=== PATIENT | male | born 1940 | race Caucasian/White ===

== ENCOUNTER 2016-10-02 14:48 | Inpatient (IN) | payer OTHER ==
[~2016-10-02] VITALS: Ht 175.3 cm; Wt 81.6 kg
--- NOTE | 2016-10-02 15:11 | NUR ---
Informed waiting has been performed. PT AWARE OF WAIT TIME.
--- NOTE | 2016-10-02 15:58 | NUR ---
PT HAD CHEST X-RAY TODAY
--- NOTE | 2016-10-02 15:58 | NUR ---
PT SENT IN BY HORACE VILLALTA FOR INCREASED SOB. PT HAD CHEST X-RAY AND IT SHOWED LG PLURAL EFFUSION AND HE WOULD LIKE PT TO GET A CT SCAN TO R/O MASS VS PNEMONIA.
[2016-10-02 16:09] LABS: ABSOLUTE BASOPHIL COUNT 0 /CUMM (0.0-0.2); ABSOLUTE EOSINOPHIL COUNT 0 /CUMM (0.0-0.7); ABSOLUTE GRANULOCYTE CT 8.3 /CUMM (1.4-6.5); ABSOLUTE LYMPH COUNT 0.8 /CUMM (1.2-3.4); ABSOLUTE MONOCYTE COUNT 0.4 /CUMM (0.10-0.60); BASOPHIL % 0.2 % (0.0-2.0); EOSINOPHIL % 0 % (0-5); HEMATOCRIT 41.4 % (42-52); MEAN CORPUSCULAR HGB 29.3 PG (27.0-31.0); MEAN CORPUSCULAR HGB CONC 33.3 G/DL (33.0-37.0); MEAN PLATELET VOLUME 7.7 FL (7.4-10.4); PLATELET COUNT 407 /CUMM (130-400); RBC DISTRIBUTION WIDTH 13.6 % (11.5-14.5); RED BLOOD CELL CT 4.71 /CUMM (4.70-6.10); WHITE BLOOD CELL COUNT 9.6 /CUMM (4.8-10.8)
[2016-10-02 16:11] LABS: GRANULOCYTE % 87.1 % (42.2-75.2)
--- NOTE | 2016-10-02 16:13 | NUR ---
blood drawn and sent to lab. lav,sst,blue,galeas,pink
--- NOTE | 2016-10-02 17:04 | ED DYSPNEA/ASTHMA COMPLAINT ---
History of Present Illness General Chief Complaint: General Adult Stated Complaint: SIB MD LR FOR EVAL? Source: patient Exam Limitations: no limitations Vital Signs & Intake/Output Vital Signs & Intake/Output Vital Signs Date Time Temp Pulse Resp B/P Pulse O2 O2 Flow FiO2 Ox Delivery Rate 10/03 0700 97.8 62 20 142/94 93 Room Air 10/03 0136 94 Room Air 10/03 0000 94 Room Air 10/02 2343 97.6 73 19 142/80 91 Room Air 10/02 2207 Room Air 10/02 2153 Room Air 10/02 2106 97.4 77 20 174/90 93 10/02 1955 97.6 83 16 145/80 94 Room Air 10/02 1900 94 Room Air 10/02 1558 98.2 87 18 148/92 94 Room Air ED Intake and Output 10/03 0000 10/02 1200 Intake Total 490 Output Total Balance 490 Intake, Oral 490 Patient 180 lb Weight Allergies Coded Allergies: No Known Allergies (10/02/16) Reconcile Medications Albuterol Sulfate (Proair Hfa) 90 MCG HFA.AER.AD 2 PUF INH Q4-6 PRN PRN RESPIRATORY (Reported) Cholecalciferol (Vitamin D3) (Vitamin D) (Unknown Strength) CAPSULE (Unknown Dose) PO DAILY SUPPLEMENT (Reported) Prednisone 20 MG TABLET 1 TAB PO BID RESPIRATORY (Reported) Triage Note: PT SENT IN BY HORACE VILLALTA FOR INCREASED SOB. PT HAD CHEST X-RAY AND IT SHOWED LG PLURAL EFFUSION AND HE WOULD LIKE PT TO GET A CT SCAN TO R/O MASS VS PNEMONIA. Triage Nurses Notes Reviewed? yes Onset: Gradual Duration: getting worse Timing: recent history Severity: severe Activities at Onset: activity HPI: Patient is a 76-year-old male with an unremarkable past medical history of since emergency room stating that for the past month he has been complaining of dyspnea and dyspnea on exertion. Patient states that now with minimal physical activity of walking he gets out of breath. Patient was evaluated by primary care provider last week for similar complaints in which chest x-ray showed pleural effusion, patient was sent in by this primary care provider Jefferson Lr today to receive CT scan of chest for rule out malignancy versus pneumonia versus pleural effusion. Patient states that he's had clear productive coughing and chest tightness for the past month. Denies any fever chills are pain jaw pain nausea vomiting leg swelling hemoptysis (MELISSA RAMIREZ) Past History Travel History Traveled to [place] past 21 day No Medical History Any Pertinent Medical History? none Surgical History Surgical History: non-contributory Psychosocial History What is your primary language Welsh Tobacco Use: Quit >30 days ago ETOH Use: occasional use Illicit Drug Use: denies illicit drug use Family History Hx Contributory? No (MELISSA RAMIREZ) Review of Systems Review of Systems Constitutional: Reports: no symptoms. EENTM: Reports: no symptoms. Respiratory: Reports: see HPI, cough, short of breath. Cardiovascular: Reports: no symptoms. GI: Reports: no symptoms. Genitourinary: Reports: no symptoms. Musculoskeletal: Reports: no symptoms. Skin: Reports: no symptoms. Neurological/Psychological: Reports: no symptoms. Hematologic/Endocrine: Reports: no symptoms. Immunologic/Allergic: Reports: no symptoms. All Other Systems: Reviewed and Negative (MELISSA RAMIREZ) Physical Exam Physical Exam General Appearance: no apparent distress, alert Respiratory: chest non-tender, no respiratory distress, quiet respiration, decreased breath sounds Comments: HEENT: Normal EENT exam, . Neck: Supple, no lymphadenopathy, normal range of motion without pain or tenderness Back: Nontender, no CVA tenderness. Cardiovascular: Regular rate and rhythms no murmurs rubs or gallops, normal JVP Abdomen: Soft, nontender nondistended, no appreciable organomegaly. Normal bowel sounds. No ascites Extremity: No edema, no calf tenderness to palpation, normal and equal pulses. Neuro: Alert oriented x3, motor sensory normal, Skin: No appreciable rash on exposed skin, skin is warm and dry. Psych: Mood and affect is normal, memory and judgment is normal. Core Measures ACS in differential dx? No Severe Sepsis Present: No Septic Shock Present: No (MELISSA RAMIREZ) Progress Differential Diagnosis: asthma, AMI, bronchitis, costochondritis, CHF, COPD, musculoskeletal pain, pericarditis, pulmonary embolism, pneumonia, pneumothorax, rib fracture, unstable angina Plan of Care: Orders Procedure Date/time Status Regular Diet 10/03 B Active Change service to 10/03 820 Active PLEURAL PH (GEN) 10/03 08 Active CULTURE,BODY FLUID 10/03 08 Active CYTOLOGY SPECIMEN 10/03 799 Active BODY FLUID TOTAL PROTEIN 10/03 799 Active BODY FLUID LDH 10/03 799 Active BODY FLUID CELL COUNT 10/03 0800 Active BODY FLUID GLUCOSE 10/03 0800 Active BODY FLUID AMYLASE 10/03 0800 Active BODY FLUID ALBUMIN 10/03 0800 Active TOTAL PROTEIN 10/03 0600 Complete LDH (LACT ACID DEHYDROGENASE) 10/03 0600 Complete CBC WITHOUT DIFFERENTIAL 10/03 0600 Complete BASIC ELECTROLYTES PLUS BUN&CR 10/03 0600 Complete ALBUMIN 10/03 0600 Complete Pain Treatment and Response 10/03 0308 Active US-THORACENTESIS 10/03 UNK Active Lab Add-on Test 10/03 UNK Active THERAPIST ORDERS 10/02 2210 Complete RT: Evaluation 10/02 220 Active TROPONIN LEVEL 10/02 220 Complete EKG 10/02 220 Active Teach/Educate 10/02 2151 Active Nutritional Intake, Monitor 10/02 2151 Active Isolation 10/02 2151 Active Patient Care Conference 10/02 2151 Active Activity/Ambulation 10/02 2151 Active TRC EVALUATION (GEN) 10/02 2037 Complete Saline Lock 10/02 2037 Active Pathway - chart 10/02 2037 Active House Staff 10/02 2037 Active Code Status 10/02 203 Active Intake & Output 10/02 1959 Complete Vital Signs 10/02 1855 Complete Code Status 10/02 1855 Complete Patient Data 10/02 1845 Active Admit to inpatient 10/02 1836 Active Add-on Test (ER Only) 10/02 1713 Active Add-on Test (ER Only) 10/02 1704 Active EKG 10/02 1704 Active TROPONIN LEVEL 10/02 1601 Complete PARTIAL THROMBOPLASTIN TIME 10/02 1601 Complete PROTHROMBIN TIME 10/02 1601 Complete B-TYPE NATRIURETIC PEP (BNP) 10/02 1601 Complete COMPREHENSIVE METABOLIC PANEL 10/02 1559 Complete CBC WITHOUT DIFFERENTIAL 10/02 1559 Complete INCENTIVE SPIROMETRY TRX CHG 10/02 UNK Complete VTE Mechanical Prophylaxis 10/02 UNK Active Vital Signs 10/02 UNK Active Intake & Output 10/02 UNK Active ECHOCARDIOGRAM 10/02 UNK Active Current Medications Sig/Ezequiel Start time Last Medication Dose Stop Time Status Admin Influenza Virus 0.5 ML 1000 10/03 1000 AC Vaccine 10/03 1001 (Fluzone High-Dose) Acetaminophen 650 MG Q6P PRN 10/02 2030 AC (Tylenol) Ibuprofen 600 MG Q6P PRN 10/02 2030 AC (Motrin) Oxycodone HCl 5 MG Q6H PRN 10/02 2030 AC (Roxicodone) Laboratory Tests 10/03/16 0619: Anion Gap 8, Estimated GFR > 60, BUN/Creatinine Ratio 26.7 H, Lactate Dehydrogenase 445, Total Protein 6.7, Albumin 3.9, CBC w Diff NO MAN DIFF REQ, RBC 4.61 L, MCV 88.9, MCH 29.5, RDW 13.4, MPV 7.9, Gran % 63.5, Lymphocytes % 22.3, Monocytes % 11.8 H, Eosinophils % 1.8, Basophils % 0.6, Absolute Granulocytes 5.4, Absolute Lymphocytes 1.9, Absolute Monocytes 1.0 H, Absolute Eosinophils 0.2, Absolute Basophils 0.1, PUBS MCHC 33.2 10/03/16 0600: Lactate Dehydrogenase Cancelled 10/02/16 2200: Troponin I < 0.01 10/02/16 1713: PT Cancelled, INR Cancelled, APTT Cancelled 10/02/16 1601: Anion Gap 12, Estimated GFR > 60, BUN/Creatinine Ratio 25.6 H, Glucose 114 H, Calcium 9.7, Total Bilirubin 0.4, AST 20, ALT 30, Alkaline Phosphatase 76, Troponin I < 0.01, Fnh-Y-Mxmktannunc Pept 44.1, Total Protein 7.6, Albumin 4.5, Globulin 3.1, Albumin/Globulin Ratio 1.5, PT 10.8, INR 1.03, APTT 30, CBC w Diff NO MAN DIFF REQ, RBC 4.71, MCV 88.0, MCH 29.3, RDW 13.6, MPV 7.7, Gran % 87.1 H , Lymphocytes % 8.2 L, Monocytes % 4.5, Eosinophils % 0, Basophils % 0.2, Absolute Granulocytes 8.3 H, Absolute Lymphocytes 0.8 L, Absolute Monocytes 0.4, Absolute Eosinophils 0, Absolute Basophils 0, PUBS MCHC 33.3 Microbiology 10/03 08 BODY FLUID: Body Fluid Culture - ORD 10/03 799 BODY FLUID: Gram Stain - ORD Patient currently is in no respiratory distress. I ambulated down the hallway of emergency room with patient in which he became to However his oxygen saturation was 92%. I discussed patient with his primary care provider Jefferson Lr in which we AGREED upon patient to be admitted to receive therapeutic and diagnostic thoracocentesis PERFORMED BY interventional radiology tomorrow since IR is not available currently. Discussed disposition and plan with patient and family members who agree and had no questions. At this time I did not suspect patient to have infectious process etiology for his right-sided significant pleural effusion. Discussed admission AND PT with Dr. RENTERIA (ARTHUR ZAVALA,MELISSA) Diagnostic Imaging: Viewed by Me: CT Scan. Radiology Impression: SEE COMMENTS Initial ED EKG: SINUS RHYTHM NOTED 68 BPM, LAD Comments: PATIENT: SOCRATES SEGOVIA PRESENT AGE: 76 PATIENT ACCOUNT NO: [id number] : 42 LOCATION: [facility] ORDERING PHYSICIAN: MELISSA ZAVALA SERVICE DATE: 10/02/16 EXAM TYPE: CAT - CT CHEST WO IV CONTRAST EXAMINATION: CT CHEST WITHOUT CONTRAST CLINICAL INFORMATION: Increased shortness of breath. Rule out pneumonia. COMPARISON: None. TECHNIQUE: Multidetector volumetric CT imaging of the chest was done. Axial MIP volume rendering provided. Sagittal and coronal reformatted images were obtained. DLP: 350.81 mGy-cm. FINDINGS: ELECTRICAL CONTROLS TECHNICIAN: Moderate to right pleural effusion is noted at the base and at the apex. LUNGS: Small consolidation in the right upper lobe (series 601 image 59, series 2 images 16 through 21) is noted. Left lower lobe from consolidation representing compressive atelectasis. LOWER NECK AND MEDIASTINUM: The thyroid gland is unremarkable. No mediastinal or hilar adenopathy. No pericardial effusion. The ascending aorta measures 4.1 cm and descending aorta measures 3.2 cm in maximum AP diameter. Mild coronary calcifications. Trachea and mainstem bronchi are well patent. PLEURA: There is moderate to large right pleural effusion. No left pleural effusion. AXILLA: No lymphadenopathy. UPPER ABDOMEN: Unremarkable. OSSEOUS STRUCTURES: Mild degenerative changes in the spine. There is a small sclerotic density in the medial left clavicle representing a bone island. IMPRESSION: Moderate to large right pleural effusion with right lower lobe compressive atelectasis. Small consolidation in the right upper lobe most probably represent compressive atelectasis as well, however pneumonic consolidation or mass cannot be excluded. (MELISSA RAMIREZ) Departure Departure Disposition: STILL A PATIENT Condition: Fair Clinical Impression Primary Impression: Pleural effusion Secondary Impressions: Dyspnea Referrals: EVELYN HENDRICKSON,JEFFERSON Ozuna (PCP) Departure Forms: Customer Survey General Discharge Information Admission Note Spoke With: MINOO NAM,CATHY Documentation of Exam: Documentation of any treatments & extenuating circumstances including Concerns Regarding Discharge (functional status, medication knowledge or non-compliance, living conditions, etc.) that warrant an admission rather than observation: [ Discussed patient with Dr. HENNESSY who agrees with general medicine admission for concerns of significant pleural effusion which patient will require interventional radiology guided thoracocentesis for therapeutic and diagnostic evaluation. Patient requires pulmonary consultation AND repeat imaging. Outpatient treatment at this time due to significant and critical findings of pleural effusion would be medically harmful.] (MELISSA RAMIREZ) PA/MARINE EQUIPMENT RESEARCH ENGINEER Co-Sign Statement Statement: ED Attending supervision documentation- [X] I saw and evaluated the patient. I have also reviewed all the pertinent lab results and diagnostic results. I agree with the findings and the plan of care as documented in the PA's/MARINE EQUIPMENT RESEARCH ENGINEER's documentation. [X] I have reviewed the ED Record and agree with the PA's/MARINE EQUIPMENT RESEARCH ENGINEER's documentation. [] Additions or exceptions (if any) to the PAs/MARINE EQUIPMENT RESEARCH ENGINEER's note and plan are summarized below: [] (MYRA NAM,MISAEL) Critical Care Note Critical Care Note Critical Care Time: 30-74 min (MELISSA RAMIREZ)
--- NOTE | 2016-10-02 17:18 | CT SCAN REPORT ---
EXAMINATION: CT CHEST WITHOUT CONTRAST CLINICAL INFORMATION: Increased shortness of breath. Rule out pneumonia. COMPARISON: None. TECHNIQUE: Multidetector volumetric CT imaging of the chest was done. Axial MIP volume rendering provided. Sagittal and coronal reformatted images were obtained. DLP: 350.81 mGy-cm. 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 LUNGS: Small consolidation in the right upper lobe (series 601 image 59, series 2 images 16 through 21) is noted. Left lower lobe from consolidation representing compressive atelectasis. LOWER NECK AND MEDIASTINUM: The thyroid gland is unremarkable. No mediastinal or hilar adenopathy. No pericardial effusion. The ascending aorta measures 4.1 cm and descending aorta measures 3.2 cm in maximum AP diameter. Mild coronary calcifications. Trachea and mainstem bronchi are well patent. PLEURA: There is moderate to large right pleural effusion. No left pleural effusion. AXILLA: No lymphadenopathy. UPPER ABDOMEN: Unremarkable. OSSEOUS STRUCTURES: Mild degenerative changes in the spine. There is a small sclerotic density in the medial left clavicle representing a bone island. IMPRESSION: Moderate to large right pleural effusion with right lower lobe compressive atelectasis. Small consolidation in the right upper lobe most probably represent compressive atelectasis as well, however pneumonic consolidation or mass cannot be excluded.
[2016-10-02] MEDS ORDERED: PROAIR HFA8.5 GM INH (18:03)
[2016-10-02] MEDS ORDERED: PREDNISONE20 M1 PO (18:03)
[2016-10-02] MEDS ORDERED: VITAMIN D2000 UNIT PO (18:04)
--- NOTE | 2016-10-02 18:27 | NUR ---
SPOKE TO [facility] [employer]. ORDERED CHICKEN WRAP WITH LETTUCE,TOMATO,MILLER, CHICKEN JIMMY SALAD, STRAWBERRY SHORTCAKE AND MILK.
[2016-10-02 18:32] LABS: PT 10.8 SEC (9.4-12.5); PTT 30 SEC (25-37)
--- NOTE | 2016-10-02 19:00 | NUR ---
PT EATING DINNER. IN NAD. WILL CONTINUE TO MONITOR
--- NOTE | 2016-10-02 19:16 | NUR ---
PT ASSIGNED TO ROOM 204-2. NURSE NOTIFIED
--- NOTE | 2016-10-02 20:00 | NUR ---
AVSS. FAMILY AT BEDSIDE FOR SUPPORT
--- NOTE | 2016-10-02 20:03 | History & Physical ---
ISAAC SANCHEZ MD 10/02/162001: General Information and HPI MD Statement: I have seen and personally examined SOCRATES SEGOVIA and documented this H&P. The patient is a 76 year old M who presented with a patient stated chief complaint of [SHORTNESS OF BREATH]. Source of Information: patient, family Exam Limitations: no limitations History of Present Illness: 76-year-old male with no significant prior PMH was sent in by PCP office for further evaluation of pleural effusion. Pt have been having shortness of breath over the past few months, and had it evaluated at his PCP's office 3 weeks ago, and again about 1 week ago. EKG done was normal. He completed 5 day course of prednisone and albuterol for bronchitis today. He had CXR done as OP today which showed pleural effusion and he was told to come to ED for further work-up with CT scan. He complains of cough productive of clear sputum, intermittent chest tightness/ discomfort localized over the sternum and over the left chest. He reports choking sensation, "throat closing up", especially in the cold. That sensation has improved after the prednisone and albuterol. He refused his flu shot this year. He has lost about 20 lbs over the last 3 years (according to pt), over the last year according to the sons present at bedside. He does not have a good appetite because his is "going through medical stuff". He also reports a change in diet. He has night sweats sometimes. 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 Over the last few months, he has had difficulty sleeping, and has been taking benadryl or nyquil to help him sleep. He denies orthopnea or leg swelling. He is a former smoker, smoked about 1 ppd, and could not specify the number of years. He quit smoking 37 years ago. He drinks about 2 glasses of wine a week and denies illicit drug use. Pt had workup for emphysema in the past and had seen [address] Doran with PFTs in the past, and he was told that he does not have emphysema. He had "routine stress test" done with Dr Mena which was normal. He complains of chronic right shoulder pain due to mild rotator cuff tear. He reports an umbilical hernia, for which he gets intermittent throbbing pain on his right testicle, and would feel nauseous, without vomiting, and his umbilicus would be tender during those episodes. The episode is very brief in duration. Allergies/Medications Allergies: Coded Allergies: No Known Allergies (10/02/16) Home Med list Albuterol Sulfate (Proair Hfa) 90 MCG HFA.AER.AD 2 PUF INH Q4-6 PRN PRN RESPIRATORY (Reported) Cholecalciferol (Vitamin D3) (Vitamin D) (Unknown Strength) CAPSULE (Unknown Dose) PO DAILY SUPPLEMENT (Reported) Prednisone 20 MG TABLET 1 TAB PO BID RESPIRATORY (Reported) Past History Travel History Traveled to [facility] past 21 day No Medical History Gastrointestinal: umbilical hernia Musculoskeletal: mild rotator cuff tear Surgical History Surgical History: non-contributory Past Family/Social History Family History Relations & Conditions if any FATHER FH: stroke Psychosocial History Where do you live? Home Who Do You Live With? spouse Services at Home: None Smoking Status: Former Smoker ETOH Use: occasional use Illicit Drug Use: denies illicit drug use Functional Ability ADLs Independent: dressing, eating, toileting, bathing. Ambulation: independent IADLs Independent: shopping, housework, finances, food prep, telephone, transportation , medication admin. 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 Denies: chills, fever. EENTM: Denies: visual changes, nasal congestion, throat pain. Cardiovascular: Reports: chest pain. Denies: orthopena, palpitations, peripheral edema, syncope. Respiratory: Reports: cough, short of breath, sputum production. Denies: hemoptysis, wheezing. GI: Denies: abdominal pain, bloating, constipation, diarrhea, nausea, bloody stool, vomiting. Genitourinary: Denies: dysuria. Musculoskeletal: Reports: joint pain (right shoulder pain). Denies: back pain. Exam & Diagnostic Data Last 24 Hrs of Vital Signs/I&O Vital Signs Date Time Temp Pulse Resp B/P Pulse O2 O2 Flow FiO2 Ox Delivery Rate 10/02 2105 97.4 77 20 174/90 93 10/02 1954 97.6 83 16 145/80 94 Room Air 10/02 1900 94 Room Air 10/02 1558 98.2 87 18 148/92 94 Room Air Intake & Output 10/02 1600 10/02 0800 10/02 0000 Intake Total Output Total Balance Patient 81.647 kg Weight Physical Exam General Appearance Alert, Oriented X3, Cooperative, No Acute Distress, noticably short of breath at the end of his sentence Skin healing wound over the left hand from touching hot copper dow 1 week prior HEENT Atraumatic, PERRLA, EOMI, Mucous Membr. moist/pink Neck Supple, No JVD, No thryomegaly, +2 Carotid Pulse wo Bruit, No LAD Lymphatic Axillary nl, Cervical nl Cardiovascular Regular Rate, Normal S1, Normal S2, No Murmurs, Gallops, Rubs Lungs decreased breath sound over the base and mid right lung , normal breath sound otherwise , right base and mid lung dull to percussion Abdomen Normal Bowel Sounds, Soft, No Tenderness, small umbilical hernia Neurological Normal Speech Last 24 Hrs of Labs/Tio: Laboratory Tests 10/02/16 1713: PT Cancelled, INR Cancelled, APTT Cancelled 10/02/16 1601: Anion Gap 12, Estimated GFR > 60, BUN/Creatinine Ratio 25.6 H, Glucose 114 H, Calcium 9.7, Total Bilirubin 0.4, AST 20, ALT 30, Alkaline Phosphatase 76, Troponin I < 0.01, Gzw-N-Mzpoubwafee Pept 44.1, Total Protein 7.6, Albumin 4.5, Globulin 3.1, Albumin/Globulin Ratio 1.5, PT 10.8, INR 1.03, APTT 30, CBC w Diff NO MAN DIFF REQ, RBC 4.71, MCV 88.0, MCH 29.3, RDW 13.6, MPV 7.7, Gran % 87.1 H , Lymphocytes % 8.2 L, Monocytes % 4.5, Eosinophils % 0, Basophils % 0.2, Absolute Granulocytes 8.3 H, Absolute Lymphocytes 0.8 L, Absolute Monocytes 0.4, Absolute Eosinophils 0, Absolute Basophils 0, PUBS MCHC 33.3 Diagnostic Data Other Results Chest CT: IMPRESSION: Moderate to large right pleural effusion with right lower lobe compressive atelectasis. Small consolidation in the right upper lobe most probably represent compressive atelectasis as well, however pneumonic consolidation or mass cannot be excluded. Assessment/Plan Assessment: 76-year-old male with no significant prior PMH was sent in by PCP office for further evaluation of pleural effusion, with increased dyspnea. Pt admitted to with the following problems addressed: # Right sided pleural effusion * Serial EKG and trop, next one at 10pm * Diagnostic and therapeutic thora, send pleural studies * Pulm consult in am, pt has no preference * Follow echocardiogram * Consider cardio consult with Dr. Mena # Sleep * Rozerem Diet: regular DVT ppx: alps, need thora tomorrow FULL CODE As Ranked By This Provider Problem List: 1. Pleural effusion 2. Dyspnea Core Measures/Miscellaneous Acute Coronary Syndrome ACS Diagnosis: No Cerebrovascular Accident CVA/TIA Diagnosis: No Congestive Heart Failure CHF Diagnosis: No Venous Thromboembolism VTE Risk Factors: Acute medical illness, Age > 40 VTE Prophylaxis Ordered Inpt: Mechanical (ALPS/TEDS) No Mech VTE prophylaxis d/t: No contraindications No VTE Pharm Prophylaxis d/t: Surgical contraindication (thoracentesis tomorrow ) VTE Diagnosis: No VTE Type: NONE VTE Confirmed by (Test): NONE Severe Sepsis Severe Sepsis Present: No Septic Shock Septic Shock Present: No Miscellaneous Documentation Attending Case Discussed With: NGHIA HENNESSY MDElissa Primary Care Physician: JEFFERSON SANTANA Patient sees these Specialists None Level of Patient Care: General Medicine NGHIA HENNESSY MD 10/02/163: Attending MD Review Statement Attending Statement Attending MD Statement: examined this patient, discuss w/resident/PA/GENERAL ASSISTANT, agreed w/resident/PA/GENERAL ASSISTANT, discussed with family Attending Assessment/Plan: 76 yo M is here for evaluation of exertional dyspnea, cough productive of clear phlegm and chest discomfort that has slowly progressed over the past few months, 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 He also reports episodes of ' feeling a sensation of throat closing up' that seems to have gotten better after short course of prednisone and PRN albuterol that his PCP prescribed him. He had a CXR today as advised by his PCP, which was abnormal and so he was asked to come to ER for CT chest. Family reports patient may have lost about 20 lbs in the past 1 year, appetite is poor as patient's is undergoing dialysis and he is taking care of her. His previous work up includes PFT with Dr. Fisher that was suggestive of emphysema, however he got a second opinion and was cleared off the diagnosis. He also had a stress test done with Dr. Mena that was normal. VSS. Exam: mild respiratory distress, 'winded' at the end of completing his sentence, Chest reduced to absent air entry on right mid to lower half of lung. Abdo: small umbilical hernia. Labs: BUN 23, trop neg. CT chest: moderate to large right pleural effusion with RLL atelectasis. RUL compressive atelectasis vs. consolidation. EKG: SR. 1. Right sided pleural effusion of unclear etiology. ?Underlying consolidation vs. mass. Needs diagnostic and therapeutic thoracentesis with IR in AM. Send fluid for cell count, pH, LDH, protein, cytology and culture. Pulm consult in AM. Obtain Echo, rule out ACS. DVT ppx Alps. Full code. JULIETA DIAZ 10/03/16 0155: Resident Review Statement Resident Statement: examined this patient, discussed with post graduate internship, agreed with post graduate internship, discussed with family, reviewed EMR data (avail), reviewed images, amended to note Other Findings: This is 76-year-old male with no significant prior past medical history was sent in by PCP office for further evaluation of pleural effusion that was seen on the chest x-ray that was done today. Patient reports experiencing shortness of breath that is associated with productive cough with clear sputum, also intermittent chest tightness/discomfort localized over the sternum and over the left chest. for the past couple of months, progressing. Patient stated that he complete a course of prednisone and albuterol for bronchitis today that was prescribed by his primary care doctor, despite that there is only minimal improvement in his symptoms.Patient reports weight loss and decreased appetite, he stated he lost around 20 pounds and his son stated that his clothes become too loose on him. He Denies any: chills, fever, orthopena, palpitations, peripheral edema, syncope, hemoptysis, wheezing. Physical examination, lab and imaging as above. Problem list: -Right side pleural effusion, malignancy needs to be rule out -Thrombocytosis Plan: -Admit patient to general medicine floor -Vitals every shift, I and O's -One set of troponin and EKG -Prep the patient for thoracentesis tomorrow morning -Pleural fluid analysis, culture, pH, LDH -Echocardiogram, based on finding consider cardiology consultation -Pulmonary consultation a.m. -Roarnaldoem to the patient sleep -Regular diet -Pain pathway -DVT prophylaxis: Alps -Full code
--- NOTE | 2016-10-02 20:21 | NUR ---
REPORT GIVEN TO BHAVNA CROSS
--- NOTE | 2016-10-02 20:22 | NUR ---
HOUSE STAFF AT BEDSIDE
[2016-10-02 21:06] VITALS: BP 174/90
--- NOTE | 2016-10-02 21:15 | Admission Certification ---
Admission Certification Certification Statement - As attending physician, I certify that at the time of - admission, based on clinical presentation, severity of - symptoms, need for further diagnostic testing and - therapeutic interventions, and risk of adverse outcomes - without in-hospital treatment, in my clinical assessment, - this patient requires an acute hospital stay for a minimum - of two nights or longer. I have also considered psychsocial - factors such as support system, advanced age, financial - issues, cognitive issues, and failed out-patient treatments, - past re-admission history, safety of patient, and lack of - compliance as applicable. Specific rationale supporting this admission is: Right sided pleural effusion of unclear etiology, requires diagnostic and therapeutic thoracentesis and Pulm consult.
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
[2016-10-02 23:43] VITALS: BP 142/80
--- NOTE | 2016-10-03 06:48 | NUR ---
SENT TEXT PAGE TO CHIEF OF SERVICE #[id number] TO CHANGE LAB ORDER TO ADD ON. SST ALREADY DRAWN.
[2016-10-03 07:00] VITALS: BP 142/94
--- NOTE | 2016-10-03 07:06 | PN- Housestaff ---
See Addendum Subjective Follow-up For: Dyspnea Subjective: Patient seen and examined at bedside this AM. He was resting comfortably in bed on room air without any complaints. He reports he did not sleep well but otherwise feels well. Patient is aware he is to have a thoracentesis and risks/ benefits discussed. Review of Systems Constitutional: Denies: chills, diaphoresis, fever. EENTM: Denies: blurred vision, visual changes, hearing changes. Cardiovascular: Denies: chest pain, palpitations. Respiratory: Reports: cough (Occasional), short of breath. Denies: hemoptysis, orthopnea, sputum production, wheezing. Gastrointestinal: Denies: abdominal pain, bloating, constipation, diarrhea. Genitourinary: Denies: dysuria, frequency, hematuria. Musculoskeletal: Denies: back pain. Skin: Denies: change in skin color, change in hair/nails. Neurological/Psychological: Denies: confusion, headache, numbness. Hematologic/Endocrine: Denies: bruising, bleeding. Immunologic/Allergic: Denies: splenectomy. Objective Last 24 Hrs of Vital Signs/I&O Vital Signs Date Time Temp Pulse Resp B/P Pulse O2 O2 Flow FiO2 Ox Delivery Rate 10/03 1240 98.7 70 24 122/68 93 Nasal 2.0L Cannula 10/03 0940 98.6 78 18 126/78 95 Room Air 10/03 0800 95 Room Air 10/03 0700 97.8 62 20 142/94 93 Room Air 10/03 0136 94 Room Air 10/03 0000 94 Room Air 10/02 2343 97.6 73 19 142/80 91 Room Air 10/02 2207 Room Air 10/02 2153 Room Air 10/02 2106 97.4 77 20 174/90 93 10/02 1955 97.6 83 16 145/80 94 Room Air 10/02 1900 94 Room Air 10/02 1558 98.2 87 18 148/92 94 Room Air Intake & Output 10/03 1600 10/03 0800 10/03 0000 Intake Total 1150 250 490 Output Total 52 Balance 1098 250 490 Intake, IV 510 Intake, Oral 640 250 490 Output, Chest 52 Tube Drainage Patient 180 lb Weight Physical Exam General Appearance: Alert, Oriented X3, Cooperative, No Acute Distress Skin: No Significant Lesion HEENT: Atraumatic, PERRLA, Mucous Membr. moist/pink Neck: Supple Lymphatic: Axillary nl, Cervical nl Cardiovascular: Normal S1, Normal S2 Lungs: Normal Air Movement, Diminished breath sounds right lung base, no wheezing appreciated. No tachypnea or use of accesory muscles. Abdomen: Normal Bowel Sounds, Soft, No Tenderness, No Hepatospenomegaly, No Masses Neurological: Normal Speech, Normal Tone Extremities: No Clubbing, No Cyanosis, No Edema Vascular: Pulses Symmetrical Current Medications: Current Medications Sig/Ezequiel Start time Last Medication Dose Route Stop Time Status Admin Acetaminophen 650 MG Q6P PRN 10/02 2029 AC 10/03 PO 1256 Ibuprofen 600 MG Q6P PRN 10/02 2029 AC PO Influenza Virus 0.5 ML 1000 10/03 1000 DC Vaccine IM 10/03 1001 Oxycodone HCl 5 MG Q6H PRN 10/02 2029 AC PO Ramelteon 8 MG AT BEDTIME 10/02 2200 AC 10/02 PO 2221 Sodium Chloride 500 ML BOLUS ONE 10/03 1215 DC 10/03 IV 10/03 1314 1253 Last 24 Hrs of Lab/Tio Results Last 24 Hrs of Labs/Mics: Laboratory Tests 10/03/16 1247: CBC w Diff NO MAN DIFF REQ, RBC 4.58 L, MCV 88.7, MCH 29.5, RDW 13.6, MPV 7.8, Gran % 83.8 H, Lymphocytes % 8.6 L, Monocytes % 6.7, Eosinophils % 0.7, Basophils % 0.2, Absolute Granulocytes 10.7 H, Absolute Lymphocytes 1.1 L, Absolute Monocytes 0.9 H, Absolute Eosinophils 0.1, Absolute Basophils 0, PUBS MCHC 33.3 10/03/16 1022: Fluid WBC 1778 H, Fld Mesothelial Cells , Fld Total RBCs Counted [id number] H 10/03/16 1022: Lymphocytes 48, % Normal PMNs 5, Fluid Glucose 40, Fluid Total Protein 7.5, Fluid Albumin 4.6, Fluid LDH 1934, Fluid Amylase 61 10/03/16 1020: Phlebotomy Draw Site RT THOROCENTESIS, Pleural pH 7.21 10/03/16 0619: Anion Gap 8, Estimated GFR > 60, BUN/Creatinine Ratio 26.7 H, Lactate Dehydrogenase 445, Total Protein 6.7, Albumin 3.9, CBC w Diff NO MAN DIFF REQ, RBC 4.61 L, MCV 88.9, MCH 29.5, RDW 13.4, MPV 7.9, Gran % 63.5, Lymphocytes % 22.3, Monocytes % 11.8 H, Eosinophils % 1.8, Basophils % 0.6, Absolute Granulocytes 5.4, Absolute Lymphocytes 1.9, Absolute Monocytes 1.0 H, Absolute Eosinophils 0.2, Absolute Basophils 0.1, PUBS MCHC 33.2 10/03/16 0600: Lactate Dehydrogenase Cancelled 10/02/16 2200: Troponin I < 0.01 10/02/16 1713: PT Cancelled, INR Cancelled, APTT Cancelled 10/02/16 1601: Anion Gap 12, Estimated GFR > 60, BUN/Creatinine Ratio 25.6 H, Glucose 114 H, Calcium 9.7, Total Bilirubin 0.4, AST 20, ALT 30, Alkaline Phosphatase 76, Troponin I < 0.01, Otc-B-Hnwfaybahqn Pept 44.1, Total Protein 7.6, Albumin 4.5, Globulin 3.1, Albumin/Globulin Ratio 1.5, PT 10.8, INR 1.03, APTT 30, CBC w Diff NO MAN DIFF REQ, RBC 4.71, MCV 88.0, MCH 29.3, RDW 13.6, MPV 7.7, Gran % 87.1 H , Lymphocytes % 8.2 L, Monocytes % 4.5, Eosinophils % 0, Basophils % 0.2, Absolute Granulocytes 8.3 H, Absolute Lymphocytes 0.8 L, Absolute Monocytes 0.4, Absolute Eosinophils 0, Absolute Basophils 0, PUBS MCHC 33.3 Microbiology 10/03 1259 UPPER RESP: Surveillance Culture - COLB 10/03 1259 GI: Surveillance Culture - COLB 10/03 1022 BODY FLUID: AFB Culture with PCR Identification - RECD 10/03 1022 BODY FLUID: AFB Smear Concentration - RECD 10/03 1022 BODY FLUID: Body Fluid Culture - RECD 10/03 1022 BODY FLUID: Gram Stain - RECD Orders Radiology Findings: FINDINGS: A recently placed pleural drainage catheter is located in the inferolateral aspect of the right hemithorax. A moderate sized right pneumothorax is present; the visceral pleural line projects 6 cm below the inferior margin of the right second rib. There is no evidence of a tension pneumothorax. The right pleural effusion has significantly decreased in size after the thoracentesis, and there is decreased compressive atelectasis within the right base. The opacity at the extreme right lung apex probably represents atelectasis of the partially collapsed upper lobe. Cardiac silhouette is normal in size. No acute skeletal findings. 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 IMPRESSION: 1. The right pleural effusion has significantly decreased in size after thoracentesis. 2. Moderate right pneumothorax with pleural drainage catheter in place. 3. Compressive atelectasis in the right lower lobe. The somewhat curvilinear-shaped opacity at the apex of the right lung likely represents atelectasis in the partially collapsed upper lobe. Miscellaneous Findings: EXAMINATION: CT CHEST WITHOUT CONTRAST CLINICAL INFORMATION: Increased shortness of breath. Rule out pneumonia. COMPARISON: None. TECHNIQUE: Multidetector volumetric CT imaging of the chest was done. Axial MIP volume rendering provided. Sagittal and coronal reformatted images were obtained. DLP: 350.81 mGy-cm. FINDINGS: EXTENSION COURSE COORDINATOR: Moderate to right pleural effusion is noted at the base and at the apex. LUNGS: Small consolidation in the right upper lobe (series 601 image 59, series 2 images 16 through 21) is noted. Left lower lobe from consolidation representing compressive atelectasis. LOWER NECK AND MEDIASTINUM: The thyroid gland is unremarkable. No mediastinal or hilar adenopathy. No pericardial effusion. The ascending aorta measures 4.1 cm and descending aorta measures 3.2 cm in maximum AP diameter. Mild coronary calcifications. Trachea and mainstem bronchi are well patent. PLEURA: There is moderate to large right pleural effusion. No left pleural effusion. AXILLA: No lymphadenopathy. UPPER ABDOMEN: Unremarkable. OSSEOUS STRUCTURES: Mild degenerative changes in the spine. There is a small sclerotic density in the medial left clavicle representing a bone island. IMPRESSION: Moderate to large right pleural effusion with right lower lobe compressive atelectasis. Small consolidation in the right upper lobe most probably represent compressive atelectasis as well, however pneumonic consolidation or mass cannot be excluded. Assessment/Plan Assessment: Mr. Flores is a pleasant 76 year old male with no significant PMH on no daily medications other than vitamin D who was sent to [facility] by his PCP after workup for dyspnea found that the patient had a moderate right pleural effusion. Patient reported mild dyspnea, worse with exertion and progressing over the last month. He also endorses occasional cough but was otherwise without symptoms. Patient was admitted to the general medicine floor and the following was the management: 1. Right pleural effusion * Patient hemodynamically stable and saturating well on admission, provided supplemental O2 and TRC nebs as needed * Pulm consult placed with Dr. Doran, recommendations appreciated, will continue to follow recs * Incentive spirometry ordered * ACS ruled out with troponin negative x 2 * Patient scheduled for thoracentesis today 10/03/15 and this was completed around 12 pm * Thoracentesis removed about 2 L and this was sent for cytology, culture, protein, pH, LDH etc and AFB, f/u results of pleural fluid analysis * Patient became hypotensive to 78 systolic and was mildly symptomatic with lethargy after the procedure. Post-procedure CXR showed a PTX. * Patient was transferred to ICU for close hemodynamic monitoring. Chest tube placed to suctioning and repeat CXR ordered for 2 PM. * Patient scheduled for Chest CT with IV constrast tomorrow to further evaluate for any underlying malignancy * NS 500 cc bolus ordered once patient became mildly hypotensive, CBC ordered stat after procedure 2. Influenza vaccination * Patient received flu shot on 10/03 3. Pain * Roxicodone 5 mg Q6h for severe pain * Motrin 600 mg Q6P for moderate pain * Tylenol 650 mg Q6P for mild pain 4. Sleep * Rozerem 8 mg PO at bedtime FULL CODE DVTP: Alps Diet: Regular Mild-severe pain pathways Problem List: 1. Pleural effusion 2. Dyspnea Pain Ratin Pain Location: n/a Pain Goal: Remain pain free Pain Plan: Tylenol for mild, motrin for moderate, roxicodone for severe pain Tomorrow's Labs & Rationales: CBC (post procedure)
[2016-10-03 07:58] LABS: ABSOLUTE BASOPHIL COUNT 0.1 /CUMM (0.0-0.2); ABSOLUTE EOSINOPHIL COUNT 0.2 /CUMM (0.0-0.7); ABSOLUTE GRANULOCYTE CT 5.4 /CUMM (1.4-6.5); ABSOLUTE LYMPH COUNT 1.9 /CUMM (1.2-3.4); BASOPHIL % 0.6 % (0.0-2.0); EOSINOPHIL % 1.8 % (0-5); GRANULOCYTE % 63.5 % (42.2-75.2); MEAN CORPUSCULAR HGB 29.5 PG (27.0-31.0); MEAN CORPUSCULAR HGB CONC 33.2 G/DL (33.0-37.0); MEAN CORPUSCULAR VOLUME 88.9 FL (80.0-94.0); MEAN PLATELET VOLUME 7.9 FL (7.4-10.4); PLATELET COUNT 357 /CUMM (130-400); RBC DISTRIBUTION WIDTH 13.4 % (11.5-14.5); RED BLOOD CELL CT 4.61 /CUMM (4.70-6.10); WHITE BLOOD CELL COUNT 8.5 /CUMM (4.8-10.8)
--- NOTE | 2016-10-03 08:45 | Cons- Pulmonary ---
General Information and HPI Consulting Request Date of Consult: 10/03/16 Requested By: giselle Reason for Consult: Right pleural effusion History of Present Illness: Patient is 76-year-old former smoker admitted with increased shortness of breath associated with a moderate to large right pleural effusion. Patient was a distant smoker. 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 Over the past several weeks he's had a dry nonproductive cough and progressive shortness of breath which precipitated a chest x-ray which delineated a moderate to large right pleural effusion. He has no prior chest x- rays for comparison. He denies fevers chills night sweats hemoptysis. He has had mild weight loss which she attributes to his 's illness. Allergies/Medications Allergies: Coded Allergies: No Known Allergies (10/02/16) Home Med List: Albuterol Sulfate (Proair Hfa) 90 MCG HFA.AER.AD 2 PUF INH Q4-6 PRN PRN RESPIRATORY (Reported) Cholecalciferol (Vitamin D3) (Vitamin D) (Unknown Strength) CAPSULE (Unknown Dose) PO DAILY SUPPLEMENT (Reported) Prednisone 20 MG TABLET 1 TAB PO BID RESPIRATORY (Reported) Review of Systems Review of Systems Constitutional: Reports: unexplained weight loss. Denies: chills, fever, malaise, weakness. Cardiovascular: Denies: chest pain, edema, peripheral edema. Respiratory: Reports: cough, short of breath. Denies: hemoptysis, orthopnea, sputum production, wheezing. GI: Denies: abdominal pain, diarrhea, melena. Genitourinary: Denies: dysuria. Past History Travel History Traveled to [place] past 21 day No Medical History Blood Transfusion Hx: No Gastrointestinal: umbilical hernia Musculoskeletal: mild rotator cuff tear Surgical History Surgical History: non-contributory Family History Relations & Conditions If Any: FATHER FH: stroke Psychosocial History Where Do You Live? Home Who Do You Live With? spouse Services at Home: None Smoking Status: Former Smoker ETOH Use: occasional use Illicit Drug Use: denies illicit drug use Functional Ability ADLs Independent: dressing, eating, toileting, bathing. Ambulation: independent IADLs Independent: shopping, housework, finances, food prep, telephone, transportation , medication admin. 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 Exam & Diagnostic Data Last 24 Hrs of Vital Signs/I&O Vital Signs Date Time Temp Pulse Resp B/P Pulse O2 O2 Flow FiO2 Ox Delivery Rate 10/03 0700 97.8 62 20 142/94 93 Room Air 10/03 0136 94 Room Air 10/03 0000 94 Room Air 10/02 2343 97.6 73 19 142/80 91 Room Air 10/02 2207 Room Air 10/02 2153 Room Air 10/02 2106 97.4 77 20 174/90 93 10/02 1955 97.6 83 16 145/80 94 Room Air 10/02 1900 94 Room Air 10/02 1558 98.2 87 18 148/92 94 Room Air Intake & Output 10/03 1600 10/03 0800 10/03 0000 Intake Total 250 490 Output Total Balance 250 490 Intake, Oral 250 490 Patient 180 lb Weight Patient is afebrile room oximetry is 93% HEENT exam shows no adenopathy exam of his chest shows dullness to percussion posteriorly diminished breath sounds there is evidence of egophony the left chest is clear. Cardiac exam shows regular S1 and S2 without murmurs abdominal exam soft nontender without organomegaly his extremities are non-clubbed there is no edema Last 48 Hrs of Labs/Tio: Laboratory Tests 10/03/16 0619: Anion Gap 8, Estimated GFR > 60, BUN/Creatinine Ratio 26.7 H, Lactate Dehydrogenase 445, Total Protein 6.7, Albumin 3.9, CBC w Diff NO MAN DIFF REQ, RBC 4.61 L, MCV 88.9, MCH 29.5, RDW 13.4, MPV 7.9, Gran % 63.5, Lymphocytes % 22.3, Monocytes % 11.8 H, Eosinophils % 1.8, Basophils % 0.6, Absolute Granulocytes 5.4, Absolute Lymphocytes 1.9, Absolute Monocytes 1.0 H, Absolute Eosinophils 0.2, Absolute Basophils 0.1, PUBS MCHC 33.2 10/03/16 0600: Lactate Dehydrogenase Cancelled 10/02/16 2200: Troponin I < 0.01 10/02/16 1713: PT Cancelled, INR Cancelled, APTT Cancelled 10/02/16 1601: Anion Gap 12, Estimated GFR > 60, BUN/Creatinine Ratio 25.6 H, Glucose 114 H, Calcium 9.7, Total Bilirubin 0.4, AST 20, ALT 30, Alkaline Phosphatase 76, Troponin I < 0.01, Jgi-W-Srsmwajcptl Pept 44.1, Total Protein 7.6, Albumin 4.5, Globulin 3.1, Albumin/Globulin Ratio 1.5, PT 10.8, INR 1.03, APTT 30, CBC w Diff NO MAN DIFF REQ, RBC 4.71, MCV 88.0, MCH 29.3, RDW 13.6, MPV 7.7, Gran % 87.1 H , Lymphocytes % 8.2 L, Monocytes % 4.5, Eosinophils % 0, Basophils % 0.2, Absolute Granulocytes 8.3 H, Absolute Lymphocytes 0.8 L, Absolute Monocytes 0.4, Absolute Eosinophils 0, Absolute Basophils 0, PUBS MCHC 33.3 Assessment/Plan Impression/Plan: 76-year-old cough 4 weeks and progressive shortness of breath related to a sizable right pleural effusion. The etiology of this is unclear for concerns are raised over possible underlying malignancy, mesothelioma,. Less likely appears to be cardiac origin Recommendations: Diagnostic and therapeutic thoracentesis with specimen sent for culture both routine and AFB and cytology as well as routine studies including pH Consult Acknowledgment - Thank you for your consult request.
[2016-10-03 09:40] VITALS: BP 126/78
--- NOTE | 2016-10-03 09:41 | NUR ---
NURSING NOTE: PT LEFT FLOOR VIA STRETCHER WITH DISTRIBUTION FOR US GUIDED THORACENTESIS, VITALS OBTAINED, DOCUMENTED, PT AWAKE, A/OX3, ROOM AIR, DENIES PAIN, CHECKLIST COMPLETE. AWAIT RETUREN TO FLOOR. LABELS SENT TO US. CONT TO MONITOR.
[2016-10-03 12:40] VITALS: BP 122/68
--- NOTE | 2016-10-03 12:45 | NUR ---
NURSING NOTE: 1240PM PT BACK TO FLOOR FROM US S/P R THPRACENTESIS, 2L BLOOD DRAINAGE REMOPVED PER US RN. PT AWAKE, A/OX3, 2L NC, CHEST TUBE TO R BACK INTACT; CONNECT TO SUCTION AT 1300PM PER MD ORDER. ORDER TO TRANSFER TO ICU PLACED BY SOA ENGINEER; NOHELIA AND DYCUSBURG SUPERVISIOR AWARE, AWAITING BED ASSIGNEMTN, PT AND SON UPDATED. PT DENIES CHEST PAIN OR SOB. CONT TO MONITOR.
--- NOTE | 2016-10-03 12:45 | RADIOLOGY REPORT ---
EXAMINATION:\H\ \N\XR CHEST CLINICAL INFORMATION: Right pleural effusion status post pleural drainage catheter placement. COMPARISON: Chest CT from 10/02/2016. TECHNIQUE: Single AP view of the chest was obtained. FINDINGS: A recently placed pleural drainage catheter is located in the inferolateral aspect of the right hemithorax. A moderate sized right pneumothorax is present; the visceral pleural line projects 6 cm below the inferior margin of the right second rib. There is no evidence of a tension pneumothorax. The right pleural effusion has significantly decreased in size after the thoracentesis, and there is decreased compressive atelectasis within the right base. The opacity at the extreme right lung apex probably represents atelectasis of the partially collapsed upper lobe. Cardiac silhouette is normal in size. No acute skeletal findings. 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 IMPRESSION: 1. The right pleural effusion has significantly decreased in size after thoracentesis. 2. Moderate right pneumothorax with pleural drainage catheter in place. 3. Compressive atelectasis in the right lower lobe. The somewhat curvilinear-shaped opacity at the apex of the right lung likely represents atelectasis in the partially collapsed upper lobe.
[2016-10-03 13:11] LABS: ABSOLUTE BASOPHIL COUNT 0 /CUMM (0.0-0.2); ABSOLUTE EOSINOPHIL COUNT 0.1 /CUMM (0.0-0.7); ABSOLUTE GRANULOCYTE CT 10.7 /CUMM (1.4-6.5); ABSOLUTE LYMPH COUNT 1.1 /CUMM (1.2-3.4); ABSOLUTE MONOCYTE COUNT 0.9 /CUMM (0.10-0.60); BASOPHIL % 0.2 % (0.0-2.0); EOSINOPHIL % 0.7 % (0-5); GRANULOCYTE % 83.8 % (42.2-75.2); HEMATOCRIT 40.7 % (42-52); MEAN CORPUSCULAR HGB 29.5 PG (27.0-31.0); MEAN CORPUSCULAR HGB CONC 33.3 G/DL (33.0-37.0); MEAN CORPUSCULAR VOLUME 88.7 FL (80.0-94.0); MEAN PLATELET VOLUME 7.8 FL (7.4-10.4); PLATELET COUNT 358 /CUMM (130-400); RBC DISTRIBUTION WIDTH 13.6 % (11.5-14.5); RED BLOOD CELL CT 4.58 /CUMM (4.70-6.10); WHITE BLOOD CELL COUNT 12.7 /CUMM (4.8-10.8)
--- NOTE | 2016-10-03 13:27 | Event Note ---
Event Note Event Note: Notified by invasive imaging around 12:30 that patient had about 2 L bloody fluid drained during thoracentesis. However, his systolic blood pressure was noted to drop to 78 and the patient became mildly lethargic. His blood pressure remained positional, dropping as he sat up full to 90 degrees. Post- thoracentesis CXR was preliminarily read by radiologist and noted to have a PTX. Suggested that patient should had a chest tube placed to suction at 1 pm and repeat CXR at 2 pm. Stat CBC was ordered as well as a 500 cc bolus of NS. This case was discussed with attending of record, Dr. Colin, who suggested transferring patient to the ICU for closer hemodynamic monitoring. Patient has been signed out to ICU summer intern/resident and nursing home social worker Dr. Doran aware. Patient will haver follow up chest CT with IV contrast scheduled for tomorrow AM as thoracentesis produced bloody fluid and further malignancy workup should be done.
--- NOTE | 2016-10-03 15:01 | ULTRASOUND REPORT ---
EXAMINATION: ULTRASOUND-GUIDED RIGHT THORACENTESIS, DIAGNOSTIC AND THERAPEUTIC, RIGHT CHEST TUBE PLACEMENT CLINICAL INFORMATION: 76-year-old smoker with a history of asbestos exposure presenting with shortness of breath. CT showed the presence of a large right-sided pleural effusion. COMPARISON: Chest CT of 10/02/2015. SUPERVISOR HOT DIP PLATING: Severino Clark M.D. DESCRIPTION: Informed consent was obtained from the patient prior to the procedure. During this process, the procedure and potential alternatives was explained, along with the intended outcome and benefits. The risks of the procedure, as well as the risk of not doing the procedure, were discussed. The patient was given the opportunity to ask questions regarding the procedure and appeared competent to make medical decisions. A signed consent form which documents this discussion was placed in the medical record. The patient's prior imaging studies were reviewed. Appropriate site marking was performed. The patient was brought to the ultrasound suite and a final timeout procedure was performed. A sonographic survey was performed of the posterior right chest for localization of the pleural effusion. The overlying soft tissues of the back were sterilely prepped and draped. Maximum sterile barrier technique was maintained throughout the procedure. Following administration of 1% lidocaine for local anesthesia, a 5-[place] Prt-F-zapwmtfv catheter was introduced into the right pleural cavity using safety needle trocar technique. Approximately 2000 mL of grossly bloody, nonclotting fluid was drained into vacuum bottles. Specimens were sent for cell count with differentiation, culture and sensitivity, cytology, chemistries, and pH. Ultrasound imaging showed the results of a significant residual right pleural effusion. After discussion with the patient's attending physician and pulmonary medicine, it was decided to leave a right chest tube in place. An Amplatz stiff wire was inserted through the Gcw-P-ltszxjuj catheter and following serial fascial dilatations, exchange was made for a 10 [place] nonlocking pigtail catheter. The catheter was secured with 2-0 Ethilon suture and a StatLock. A sterile dressing was placed. Intra procedurally, the patient began feeling dizzy had a drop of blood pressure to 58/32 from a baseline of 137/62 mmHg. This was managed with Trendelenburg positioning and IV infusion of normal saline. The patient recovered promptly. The post procedure chest x-ray showed a small residual right pleural effusion at the right lung base. There is also approximately a 30% apical ex vacuo pneumothorax. There is suggestion of a right suprahilar lung mass extending to the apex of the lung measuring 6.6 x 2.9 cm. IMPRESSION: 1. Successful ultrasound guided diagnostic/therapeutic right thoracentesis yielding 2000 mL of grossly bloody, nonclotting fluid. Specimens sent for multi analysis. 2. Significant residual pleural fluid noted by ultrasound. After after consulting with the patient's treating physicians, a 10 [place] right chest tube was placed. 3. Post procedure chest x-ray showed a 30% right apical pneumothorax with suggestion of a right suprahilar mass. Dr. Fisher was notified. The right chest tube will be placed under [facility] suction. A CT with IV contrast will be obtained tomorrow for further evaluation of the possible right lung mass.
[2016-10-03 16:00] VITALS: BP 126/84
--- NOTE | 2016-10-03 16:03 | RADIOLOGY REPORT ---
EXAMINATION: XR PORTABLE CHEST CLINICAL INFORMATION: Status post large volume right thoracentesis with evacuation of 2000 mL of bloody fluid. COMPARISON: AP upright chest x-ray obtained at 10:52 today. TECHNIQUE: Portable view of the chest was obtained. FINDINGS: Again noted is a right chest tube infralaterally. Atelectatic changes are noted in the right lower lobe. The right pleural effusion appears decreased in volume. There is a persistent, stable approximately 30% right apical pneumothorax. Again noted is a suspected right suprahilar mass. The left lung is clear. IMPRESSION: 1. Right chest tube remains in satisfactory position. 2. Decreased right pleural effusion. 3. Stable 30% right apical pneumothorax. 4. Possible right suprahilar mass. Contrast CT of the chest pending.
--- NOTE | 2016-10-03 16:26 | NUR ---
@1600-PT ALERT AND ORIENTED, CALM AND COOP. VSS. TEMP 99.6. PAIN IMPROVED FROM 10 TO 6 TO R CHEST TUBE SITE AFTER RECIEVING ROXICODONE AT 1430. ASSISTED TO COMF POSITION WITH PILLOWS AND WARM SOCK PLACED TO CHEST TUBE SITE PT CONT ON 2LNC. O2SAT 96%. DENIES SOB. R CHEST TUBE SITE-PIGTAIL CATH, LWS-BLOODY DRAINAGE. NSR HR 60S. PT MADE GENMED AT THIS TIME AFTER ASSESSMENT FROM DR MCCURDY. URINAL AT BEDSIDE. PLAN FOR REPEAT CBC AT 6PM. CT CHEST ORD FOR AM. CONT TO MONITOR CLOSELY. CALL SEWELL WITHIN REACH.
[2016-10-03 19:14] LABS: ABSOLUTE BASOPHIL COUNT 0 /CUMM (0.0-0.2); ABSOLUTE EOSINOPHIL COUNT 0 /CUMM (0.0-0.7); ABSOLUTE GRANULOCYTE CT 9.5 /CUMM (1.4-6.5); ABSOLUTE LYMPH COUNT 1.1 /CUMM (1.2-3.4); ABSOLUTE MONOCYTE COUNT 0.7 /CUMM (0.10-0.60); BASOPHIL % 0.3 % (0.0-2.0); EOSINOPHIL % 0.4 % (0-5); GRANULOCYTE % 83.5 % (42.2-75.2); MEAN CORPUSCULAR HGB 29.5 PG (27.0-31.0); MEAN CORPUSCULAR HGB CONC 33.3 G/DL (33.0-37.0); MEAN CORPUSCULAR VOLUME 88.4 FL (80.0-94.0); MEAN PLATELET VOLUME 8.1 FL (7.4-10.4); PLATELET COUNT 350 /CUMM (130-400); RBC DISTRIBUTION WIDTH 13.7 % (11.5-14.5); WHITE BLOOD CELL COUNT 11.4 /CUMM (4.8-10.8)
[2016-10-03 20:30] VITALS: BP 116/60
[2016-10-04 01:00] VITALS: BP 122/64
--- NOTE | 2016-10-04 07:28 | PN- Pulmonary ---
Subjective HPI/Critical Care Issues: Patient continues to drain bloody fluid but quantity has decreased. He appears to have a persistent small air leak. Shortness of breath is improved. Pleural fluid is a lymphocytic exudate. Review of postdrainage CT suggest possibility of a right suprahilar mass. Objective Current Medications: Current Medications Sig/Ezequiel Start time Last Medication Dose Route Stop Time Status Admin Acetaminophen 650 MG .STK-MED ONE 10/03 1253 DC PO 10/03 1254 Acetaminophen 650 MG Q6P PRN 10/02 2030 AC 10/04 PO 0134 Ibuprofen 600 MG .STK-MED ONE 10/03 1817 DC PO 10/03 1818 Ibuprofen 600 MG Q6P PRN 10/02 2030 AC 10/03 PO 1821 Influenza Virus 0.5 ML 1000 10/03 1000 DC 10/03 Vaccine IM 10/03 1001 1604 Ondansetron HCl 4 MG ONCE ONE 10/03 1914 DC 10/03 IV 10/03 1916 1936 Oxycodone HCl 5 MG Q4 HRS NEEDED PRN 10/03 1914 AC 10/04 PO 0628 Oxycodone HCl 5 MG Q6H PRN 10/02 2029 DC 10/03 PO 1434 Ramelteon 8 MG AT BEDTIME 10/02 2200 AC 10/04 PO 0133 Sodium Chloride 500 ML BOLUS ONE 10/03 1215 DC 10/03 IV 10/03 1314 1253 Vital Signs & I&O Last 24 Hrs of Vitals and I&O: Vital Signs Date Time Temp Pulse Resp B/P Pulse O2 O2 Flow FiO2 Ox Delivery Rate 10/04 0100 98.3 56 18 122/64 95 Nasal 2.0L Cannula 10/04 0011 95 Nasal 2.0L Cannula 10/03 2030 99.0 60 20 116/60 92 Nasal 2.0L Cannula 10/03 1600 95 Nasal 2.0L Cannula 10/03 1600 99.6 62 18 126/84 95 Nasal 2.0L Cannula 10/03 1240 98.7 70 24 122/68 93 Nasal 2.0L Cannula 10/03 0940 98.6 78 18 126/78 95 Room Air 10/03 0800 95 Room Air Intake & Output 10/04 0800 10/04 0000 10/03 1600 Intake Total 319 135 3218 Output Total 110 488 52 Balance 10 -288 1098 Intake, IV 510 Intake, Oral 120 200 640 Output, Chest 110 488 52 Tube Drainage Since saturation 2 L 95% exam for chest shows improved breath sounds over the right hemithorax Impression/Plan Impression/Plan Impression/Plan: cardiac exam shows normal S1 and S2 without [id number] cough 4 weeks and progressive shortness of breath related to a sizable right pleural effusion. Effusion is a little lymphocytic exudative bloody highly worrisome for primary malignancy with pleural metastasis, Recommendations: Repeat chest x-ray this morning. Follow-up cultures and cytology. Repeat CT chest with IV contrast
--- NOTE | 2016-10-04 07:34 | PN- Housestaff ---
Subjective Follow-up For: -Dyspnea 2/2 pleural effusion -Pneumothorax Subjective: Patient was seen and examined at bedside. He is resting comfortable in bed without any current complaints. Patient reported that his right side chest pain improved markedly since yesterdy. Review of Systems Constitutional: Denies: chills, diaphoresis, fever. Cardiovascular: Denies: chest pain, palpitations, syncope. Respiratory: Reports: cough (Occasional ), short of breath. Denies: hemoptysis, orthopnea, sputum production. Gastrointestinal: Denies: abdominal pain, constipation, nausea, vomiting. Genitourinary: Denies: dysuria. Objective Last 24 Hrs of Vital Signs/I&O Vital Signs Date Time Temp Pulse Resp B/P Pulse O2 O2 Flow FiO2 Ox Delivery Rate 10/04 0800 97 Nasal 2.0L Cannula 10/04 0800 97.9 64 20 110/60 94 Nasal 2.0L Cannula 10/04 0100 98.3 56 18 122/64 95 Nasal 2.0L Cannula 10/04 0011 95 Nasal 2.0L Cannula 10/03 2030 99.0 60 20 116/60 92 Nasal 2.0L Cannula 10/03 1600 95 Nasal 2.0L Cannula 10/03 1600 99.6 62 18 126/84 95 Nasal 2.0L Cannula 10/03 1240 98.7 70 24 122/68 93 Nasal 2.0L Cannula Intake & Output 10/04 1600 10/04 0800 10/04 0000 Intake Total 120 200 Output Total 110 488 Balance 10 -288 Intake, Oral 120 200 Output, Chest 110 488 Tube Drainage Physical Exam General Appearance: Alert, Oriented X3, Cooperative, No Acute Distress Skin: No Rashes HEENT: Atraumatic, PERRLA, EOMI, Mucous Membr. moist/pink Cardiovascular: Regular Rate, Normal S1, Normal S2, No Murmurs Lungs: decrease airentry on the right lung , right lung tube is in place and drained 650 ml of bloddy fluid Abdomen: Soft, No Tenderness Neurological: Normal Speech Extremities: No Clubbing, No Cyanosis, No Edema Current Medications: Current Medications Sig/Ezequiel Start time Last Medication Dose Route Stop Time Status Admin Acetaminophen 650 MG .STK-MED ONE 10/04 0125 DC PO 10/04 0126 Acetaminophen 650 MG .STK-MED ONE 10/03 1253 DC PO 10/03 1254 Acetaminophen 650 MG Q6P PRN 10/02 2029 10/04 PO 0134 Ibuprofen 600 MG .STK-MED ONE 10/03 181 DC PO 10/03 181 Ibuprofen 600 MG Q6P PRN 10/02 2029 10/03 PO 1821 Ondansetron HCl 4 MG ONCE ONE 10/03 1914 DC 10/03 IV 10/03 191 1936 Oxycodone HCl 5 MG Q4 HRS NEEDED PRN 10/03 1914 10/04 PO 0628 Oxycodone HCl 5 MG Q6H PRN 10/02 2029 WA 10/03 PO 1434 Ramelteon 8 MG AT BEDTIME 10/02 2199 10/04 PO 0133 Sodium Chloride 500 ML BOLUS ONE 10/03 1215 DC 10/03 IV 10/03 1314 1253 Last 24 Hrs of Lab/Tio Results Last 24 Hrs of Labs/Mics: Laboratory Tests 10/04/16 0620: Anion Gap 9, Estimated GFR > 60, Glucose 106 H, Calcium 9.0, Phosphorus 4.4, Magnesium 2.0, Total Bilirubin 0.5, AST 15 L, ALT 25, Albumin 3.4 L, CBC w Diff NO MAN DIFF REQ, RBC 4.29 L, MCV 88.6, MCH 29.6, RDW 13.3, MPV 8.1, Gran % 79.9 H, Lymphocytes % 11.4 L, Monocytes % 7.5, Eosinophils % 1.0, Basophils % 0.2, Absolute Granulocytes 9.1 H, Absolute Lymphocytes 1.3, Absolute Monocytes 0.9 H, Absolute Eosinophils 0.1, Absolute Basophils 0, PUBS MCHC 33.4 10/03/16 1807: CBC w Diff NO MAN DIFF REQ, RBC 4.30 L, MCV 88.4, MCH 29.5, RDW 13.7, MPV 8.1, Gran % 83.5 H, Lymphocytes % 10.0 L, Monocytes % 5.8, Eosinophils % 0.4, Basophils % 0.3, Absolute Granulocytes 9.5 H, Absolute Lymphocytes 1.1 L, Absolute Monocytes 0.7 H, Absolute Eosinophils 0, Absolute Basophils 0, PUBS MCHC 33.3 10/03/16 1247: CBC w Diff NO MAN DIFF REQ, RBC 4.58 L, MCV 88.7, MCH 29.5, RDW 13.6, MPV 7.8, Gran % 83.8 H, Lymphocytes % 8.6 L, Monocytes % 6.7, Eosinophils % 0.7, Basophils % 0.2, Absolute Granulocytes 10.7 H, Absolute Lymphocytes 1.1 L, Absolute Monocytes 0.9 H, Absolute Eosinophils 0.1, Absolute Basophils 0, PUBS MCHC 33.3 Microbiology 10/03 1320 UPPER RESP: Surveillance Culture - RECD 10/03 1319 GI: Surveillance Culture - RECD Assessment/Plan Assessment: Mr. Flores is a pleasant 76 year old male with no significant PMH on no daily medications other than vitamin D who was sent to [place] by his PCP after workup for dyspnea found that the patient had a moderate right pleural effusion. Patient reported mild dyspnea, worse with exertion and progressing over the last month. He also endorses occasional cough but was otherwise without symptoms. Patient was admitted to the general medicine floor and the following was the management: 1# Right pleural effusion * Patient hemodynamically stable and saturating well, provided supplemental O2 and TRC nebs as needed * Pulm consult placed with Dr. Doran, recommendations appreciated, will continue to follow recs * ACS ruled out with troponin negative x 2 * Thoracentesis removed about 2 L and this was sent for cytology, culture, protein, pH, LDH etc and AFB, the result is back and suggestive of exudative. malignancy will need to be ruled out. * Patient scheduled for Chest CT with IV constrast today to further evaluate for any underlying malignancy 2# Influenza vaccination * Patient received flu shot on 10/03 3# Pain * Roxicodone 5 mg Q6h for severe pain * Motrin 600 mg Q6P for moderate pain * Tylenol 650 mg Q6P for mild pain 4#Sleep * Rozerem 8 mg PO at bedtime FULL CODE DVTP: Alps Diet: Regular Mild-severe pain pathways Problem List: 1. Pleural effusion 2. Dyspnea Pain Ratin Pain Location: Right chest Pain Goal: Remain pain free Pain Plan: Percocet every 4 Tomorrow's Labs & Rationales: CBC and BEP
[2016-10-04 08:00] VITALS: BP 110/60
--- NOTE | 2016-10-04 08:10 | RADIOLOGY REPORT ---
EXAMINATION: XR PORTABLE CHEST CLINICAL INFORMATION: Pleural effusion. Lung mass. Pneumothorax follow-up. COMPARISON: CXR from 10/03/2016. Chest CT from 10/02/2016. TECHNIQUE: Portable view of the chest was obtained. FINDINGS: The aeration of the right lower lobe has improved, although there is some residual hazy and linear, streaky opacity in the base, likely atelectasis. The subpleural opacity/atelectasis at the right lung apex has slightly decreased, as well. The right pneumothorax has decreased in size. The visceral pleural line now projects 3.1 cm below the inferior margin of the right second rib. Small amount of residual air is present within the right lateral costophrenic sulcus. The pleural drainage catheter projects over the region of the costophrenic sulcus. The pleural effusion has decreased compared to 10/03/2016, and is significantly decreased compared to 10/02/2016. IMPRESSION: Right pleural drainage catheter projects over the region of the costophrenic sulcus and the pleural effusion has significantly decreased. Also, the pneumothorax has decreased compared to 10/03/2016.
[2016-10-04 08:23] LABS: ABSOLUTE BASOPHIL COUNT 0 /CUMM (0.0-0.2); ABSOLUTE EOSINOPHIL COUNT 0.1 /CUMM (0.0-0.7); ABSOLUTE GRANULOCYTE CT 9.1 /CUMM (1.4-6.5); ABSOLUTE LYMPH COUNT 1.3 /CUMM (1.2-3.4); ABSOLUTE MONOCYTE COUNT 0.9 /CUMM (0.10-0.60); BASOPHIL % 0.2 % (0.0-2.0); GRANULOCYTE % 79.9 % (42.2-75.2); MEAN CORPUSCULAR HGB 29.6 PG (27.0-31.0); MEAN CORPUSCULAR HGB CONC 33.4 G/DL (33.0-37.0); MEAN CORPUSCULAR VOLUME 88.6 FL (80.0-94.0); MEAN PLATELET VOLUME 8.1 FL (7.4-10.4); PLATELET COUNT 316 /CUMM (130-400); RBC DISTRIBUTION WIDTH 13.3 % (11.5-14.5); RED BLOOD CELL CT 4.29 /CUMM (4.70-6.10); WHITE BLOOD CELL COUNT 11.4 /CUMM (4.8-10.8)
--- NOTE | 2016-10-04 10:52 | NUR ---
@0800-PT ALERT AND ORIENTED, CALM AND COOP. VSS. ROXICODONE ADMINISTERED [id number] DOSE AT 0630. PT STATES HE IS COMFORTABLE AT THIS TIME. RICE SOCK PLACED TO CT PIGTAIL SITE. CONT ON 2LNC. SAT 96%. FAINT CRACKLES TO R SIDE. REPEAT CXR BEING DONE AT BEDSIDE. ORD OF CT OF CHEST THIS AM. CONT GM HOLD. BP STABLE. REG DIET PROVIDED. VOIDS IN URINAL. SKIN INTACT. LABS STABLE. CONT TO MONITOR CLOSELY. CALL SEWELL WITHIN REACH.
--- NOTE | 2016-10-04 12:36 | PN- Att Addend ---
Attending Addendum Attending Brief Note Patient seen and examined. Resting comfortably in the intensive care unit as a general medicine hold. There were no events overnight. His pain is controlled on his current analgesic regimen. He denies shortness of breath. Patient has been afebrile and remains hemodynamically stable. 2 L of fluid was removed and thoracocentesis yesterday. Since then he has drained 650 mL of fluid. Vital Signs Date Time Temp Pulse Resp B/P Pulse O2 O2 Flow FiO2 Ox Delivery Rate 10/04 0800 97 Nasal 2.0L Cannula 10/04 0800 97.9 64 20 110/60 94 Nasal 2.0L Cannula 10/04 0100 98.3 56 18 122/64 95 Nasal 2.0L Cannula 10/04 0011 95 Nasal 2.0L Cannula 10/03 2030 99.0 60 20 116/60 92 Nasal 2.0L Cannula 10/03 1600 95 Nasal 2.0L Cannula 10/03 1600 99.6 62 18 126/84 95 Nasal 2.0L Cannula 10/03 1240 98.7 70 24 122/68 93 Nasal 2.0L Cannula Gen. appearance: Well-developed, not in acute distress Heart: S1 and S2 regular with no audible murmur Lungs: Improved air entry right lung base. Abd: Soft, nontender with normal bowel sounds. Ext: No pedal edema. Skin: Intact with no rashes Laboratory Tests 10/04/16 0620: Anion Gap 9, Estimated GFR > 60, Glucose 106 H, Calcium 9.0, Phosphorus 4.4, Magnesium 2.0, Total Bilirubin 0.5, AST 15 L, ALT 25, Albumin 3.4 L, CBC w Diff NO MAN DIFF REQ, RBC 4.29 L, MCV 88.6, MCH 29.6, RDW 13.3, MPV 8.1, Gran % 79.9 H, Lymphocytes % 11.4 L, Monocytes % 7.5, Eosinophils % 1.0, Basophils % 0.2, Absolute Granulocytes 9.1 H, Absolute Lymphocytes 1.3, Absolute Monocytes 0.9 H, Absolute Eosinophils 0.1, Absolute Basophils 0, PUBS MCHC 33.4 10/03/16 1807: CBC w Diff NO MAN DIFF REQ, RBC 4.30 L, MCV 88.4, MCH 29.5, RDW 13.7, MPV 8.1, Gran % 83.5 H, Lymphocytes % 10.0 L, Monocytes % 5.8, Eosinophils % 0.4, Basophils % 0.3, Absolute Granulocytes 9.5 H, Absolute Lymphocytes 1.1 L, Absolute Monocytes 0.7 H, Absolute Eosinophils 0, Absolute Basophils 0, PUBS MCHC 33.3 10/03/16 1247: CBC w Diff NO MAN DIFF REQ, RBC 4.58 L, MCV 88.7, MCH 29.5, RDW 13.6, MPV 7.8, Gran % 83.8 H, Lymphocytes % 8.6 L, Monocytes % 6.7, Eosinophils % 0.7, Basophils % 0.2, Absolute Granulocytes 10.7 H, Absolute Lymphocytes 1.1 L, Absolute Monocytes 0.9 H, Absolute Eosinophils 0.1, Absolute Basophils 0, PUBS MCHC 33.3 Microbiology 10/03 1320 UPPER RESP: Surveillance Culture - RECD 10/03 132 GI: Surveillance Culture - RECD Problems: 1. Hemorrhagic right pleural effusion -Gram stain and culture are negative. -Fluid is exudative with high lymphocyte count. -H&H has been stable post procedure. -Follow-up cytology. -Repeat x-ray today shows decreases set of effusion and pneumothorax. -Repeat chest CT with IV contrast as recommended by the pulmonary service to further evaluate the hazy and linear streaky opacity in the base which is currently being attributed to atelectasis on the chest x-ray. -Follow-up with the pulmonary service regarding further management of the chest tube.
[2016-10-04 16:00] VITALS: BP 120/80
--- NOTE | 2016-10-04 16:33 | NUR ---
@1600-PT RETURNED FROM CT FOR CT OF CHEST WITH CONTRAST. PT ASSISTED TO COMF POSITION IN BED WITH WARMED RICE SOCK TO CHEST TUBE SITE-PLACED BACK TO LWS. SS DRAINAGE. CONT ON RA, O2SAT 94%. DENIES SOB. CONT TO MONITOR.
--- NOTE | 2016-10-04 18:48 | CT SCAN REPORT ---
EXAMINATION: CT CHEST WITH CONTRAST CLINICAL INFORMATION: Pleural effusion, shortness of breath. Mass/malignancy. COMPARISON: CT scan of the chest 10/02/2016, and chest x-ray also obtained 10/04/2016. TECHNIQUE: Multidetector volumetric CT imaging of the chest was obtained after the administration of 74 mL of Optiray 320 intravenous contrast without immediate adverse reactions. Axial MIP volume rendering provided. Sagittal and coronal reformatted images were obtained. DLP: 294.02 mGy-cm FINDINGS: NURSING COORDINATOR: A pigtail chest drain is noted at the right base laterally. LUNGS: There is a spiculated mass in the right upper lobe medially abutting to the superior mediastinum which measures 2.0 x 1.3 cm in oblique axial dimensions. There is atelectasis at the right base. There are patchy opacities with air bronchograms at the right base, which may be consistent with consolidation. There are linear areas of opacification in the right middle lobe consistent with atelectasis. MEDIASTINUM: The thyroid gland appears normal. The mediastinum is central. There are atheromatous calcifications of the aorta and great vessels of the neck. There is no mediastinal or hilar lymphadenopathy. There are small mediastinal lymph nodes. The heart is normal in size. There is no pericardial effusion. PLEURA: The large pleural effusion is no longer visualized. There are trace bilateral pleural effusions with adjacent underlying atelectasis. There is a small pneumothorax. A pigtail catheter from the right posterior chest is noted at the right base. AXILLA: There is no axillary lymphadenopathy. There is subcutaneous air in the right chest wall extending laterally and posteriorly, and most prominent at the right lung base. UPPER ABDOMEN: There is an accessory splenule. The adrenal glands are normal in size. OSSEOUS STRUCTURES: There are multilevel degenerative changes in the thoracic spine. There is a sclerotic density in the medial left clavicle, consistent with a bone island. There are degenerative changes at the left shoulder joint. IMPRESSION: 1. There has been interval drainage of the right pleural effusion when compared to prior imaging. A pigtail catheter is noted at the right base posterolaterally. There are trace bilateral pleural effusions. 2. There is a 2.0 x 1.3 cm spiculated mass in the right upper lobe, concerning for neoplasm. This could be further assessed with PET CT scan. 3. There is subcutaneous air around the right chest, and there is a small pneumothorax.
[2016-10-04 23:35] VITALS: BP 128/78
--- NOTE | 2016-10-05 07:14 | History & Physical ---
General Information and HPI Source of Information: patient, family Exam Limitations: no limitations Allergies/Medications Allergies: Coded Allergies: No Known Allergies (10/02/16) Home Med list Albuterol Sulfate (Proair Hfa) 90 MCG HFA.AER.AD 2 PUF INH Q4-6 PRN PRN RESPIRATORY (Reported) Cholecalciferol (Vitamin D3) (Vitamin D) (Unknown Strength) CAPSULE (Unknown Dose) PO DAILY SUPPLEMENT (Reported) Prednisone 20 MG TABLET 1 TAB PO BID RESPIRATORY (Reported) Past History Travel History Traveled to [place] past 21 day No Medical History Blood Transfusion Hx: No Gastrointestinal: umbilical hernia Musculoskeletal: mild rotator cuff tear History of MRSA: No History of VRE: No History of CDIFF: No Isolation History: Standard Influenza Vaccine: 10/03/16 Surgical History Surgical History: non-contributory Past Family/Social History Family History Relations & Conditions if any FATHER FH: stroke Psychosocial History Where do you live? Home Who Do You Live With? spouse Services at Home: None Smoking Status: Former Smoker ETOH Use: occasional use Illicit Drug Use: denies illicit drug use Functional Ability ADLs Independent: dressing, eating, toileting, bathing. Ambulation: independent IADLs Independent: shopping, housework, finances, food prep, telephone, transportation , medication admin. 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 Small consolidation in the right upper lobe most probably represent compressive atelectasis as well, however pneumonic consolidation or mass cannot be excluded. Core Measures/Miscellaneous Cerebrovascular Accident CVA/TIA Diagnosis: No Severe Sepsis Severe Sepsis Present: No Septic Shock Septic Shock Present: No Miscellaneous Documentation Patient sees these Specialists None Level of Patient Care: General Medicine
--- NOTE | 2016-10-05 07:15 | PN- Housestaff ---
See Addendum Subjective Follow-up For: -Dyspnea 2/2 pleural effusion -Pneumothorax -mass on chest CT Subjective: She was seen and examined. He is awake alert X3 and looks comfortable. Patient did not have bowel movement for the last 3 days, however he denies abdominal pain, nausea, or vomiting and he is been passing gas. Patient is fitted reported mild pain on the right pleural drainage catheter site. Review of Systems Constitutional: Denies: chills, diaphoresis, fever, weakness. Cardiovascular: Reports: chest pain (mild with cough ). Respiratory: Reports: cough, sputum production (white ). Denies: hemoptysis, orthopnea, short of breath, wheezing. Gastrointestinal: Reports: constipation. Denies: abdominal pain, diarrhea, distention, nausea, vomiting. Genitourinary: Denies: dysuria. Objective Last 24 Hrs of Vital Signs/I&O Vital Signs Date Time Temp Pulse Resp B/P Pulse O2 O2 Flow FiO2 Ox Delivery Rate 10/05 0800 94 Room Air 10/05 0800 98.8 82 20 140/78 94 Room Air 10/05 0000 93 Room Air 10/04 2335 97.5 75 18 128/78 93 Room Air 10/04 1600 98.0 80 20 120/80 94 Room Air Intake & Output 10/05 1600 10/05 0800 10/05 0000 Intake Total 600 400 Output Total 100 240 Balance 500 160 Intake, IV 0 0 Intake, Oral 600 400 Number 0 0 Bowel Movements Output, Chest 240 Tube Drainage Output, 100 Drainage Physical Exam General Appearance: Alert, Oriented X3, Cooperative, No Acute Distress Skin: No Rashes HEENT: Atraumatic, PERRLA, EOMI Cardiovascular: Regular Rate, Normal S1, Normal S2, No Murmurs Lungs: decrease air-entry over lungs B/L right > left poor air movment over the right lung upper Abdomen: Soft, No Tenderness, increase bowel sound Neurological: Normal Speech Extremities: No Clubbing, No Cyanosis, No Edema Current Medications: Current Medications Sig/Ezequiel Start time Last Medication Dose Route Stop Time Status Admin Acetaminophen 650 MG Q6P PRN 10/02 2029 AC 10/04 PO 0134 Benzonatate 100 MG TID 10/04 2014 AC 10/05 PO 0822 Heparin Sodium 5,000 UNIT Q8 10/04 1230 AC 10/05 (Porcine) SC 0602 Ibuprofen 600 MG Q6P PRN 10/02 2030 AC 10/03 PO 1821 Oxycodone HCl 5 MG Q4 HRS NEEDED PRN 10/03 1915 AC 10/05 PO 0823 Polyethylene Glycol 17 GM DAILY 10/05 0515 AC 10/05 PO 0602 Ramelteon 8 MG AT BEDTIME 10/02 2200 AC 10/04 PO 2138 Senna/Docusate Sodium 1 TAB BID 10/05 05 AC 10/05 PO 0602 Last 24 Hrs of Lab/Tio Results Last 24 Hrs of Labs/Mics: Laboratory Tests 10/05/16517: Anion Gap 8, Estimated GFR > 60, Glucose 102 H, Calcium 8.8, Phosphorus 3.2, Magnesium 2.0, Total Bilirubin 0.5, AST 18, ALT 34, Albumin 3.4 L, CBC w Diff NO MAN DIFF REQ, RBC 4.32 L, MCV 89.0, MCH 29.6, RDW 13.4, MPV 8.1, Gran % 75.7 H, Lymphocytes % 14.0 L, Monocytes % 8.6, Eosinophils % 1.2, Basophils % 0.5, Absolute Granulocytes 8.5 H, Absolute Lymphocytes 1.6, Absolute Monocytes 1.0 H, Absolute Eosinophils 0.1, Absolute Basophils 0.1, PUBS MCHC 33.2 Assessment/Plan Assessment: Mr. Flores is a pleasant 76 year old male with no significant PMH on no daily medications other than vitamin D who was sent to [facility] by his PCP after workup for dyspnea found that the patient had a moderate right pleural effusion. Patient reported mild dyspnea, worse with exertion and progressing over the last month. He also endorses occasional cough but was otherwise without symptoms. 1# Right pleural effusion * Patient hemodynamically stable and saturating well, provided supplemental O2 and TRC nebs as needed * ACS ruled out with troponin negative x 2 * Thoracentesis removed about 2 L and this was sent for cytology, culture, protein, pH, LDH etc and AFB, the result is back and suggestive of exudative. malignancy will need to be ruled out. * CT result shows a 2.0 x 1.3 cm spiculated mass in the right upper lobe, concerning for neoplasm. This could be further assessed with PET CT scan. * Thoracic surgery consult placed, we will follow recs * We are waiting for cytology study, once it's identified we will ask for oncology evaluation. 2# Influenza vaccination * Patient received flu shot on 10/03 3# Pain * Roxicodone 5 mg Q6h for severe pain * Motrin 600 mg Q6P for moderate pain * Tylenol 650 mg Q6P for mild pain 4#Sleep * Rozerem 8 mg PO at bedtime FULL CODE DVTP: Alps Diet: Regular Mild-severe pain pathways Problem List: 1. Pleural effusion 2. Dyspnea Pain Ratin Pain Location: right pleural drainage catheter site with cough Pain Goal: Remain pain free Pain Plan: oxycodone 5 mg q4 prn ibuprofen 600 mg q6 prn acetaminophen 650 mg q6 prn Tomorrow's Labs & Rationales: cbc and bep
[2016-10-05 07:27] LABS: ABSOLUTE BASOPHIL COUNT 0.1 /CUMM (0.0-0.2); ABSOLUTE EOSINOPHIL COUNT 0.1 /CUMM (0.0-0.7); ABSOLUTE GRANULOCYTE CT 8.5 /CUMM (1.4-6.5); ABSOLUTE LYMPH COUNT 1.6 /CUMM (1.2-3.4); BASOPHIL % 0.5 % (0.0-2.0); EOSINOPHIL % 1.2 % (0-5); GRANULOCYTE % 75.7 % (42.2-75.2); HEMATOCRIT 38.4 % (42-52); MEAN CORPUSCULAR HGB 29.6 PG (27.0-31.0); MEAN CORPUSCULAR HGB CONC 33.2 G/DL (33.0-37.0); MEAN PLATELET VOLUME 8.1 FL (7.4-10.4); PLATELET COUNT 309 /CUMM (130-400); RBC DISTRIBUTION WIDTH 13.4 % (11.5-14.5); RED BLOOD CELL CT 4.32 /CUMM (4.70-6.10); WHITE BLOOD CELL COUNT 11.2 /CUMM (4.8-10.8)
--- NOTE | 2016-10-05 07:46 | PN- Pulmonary ---
Subjective HPI/Critical Care Issues: As breath improved changes to have chest pain with coughing. Chest CT suggests a right lung mass with probable malignant pleural effusion/ Objective Current Medications: Current Medications Sig/Ezequiel Start time Last Medication Dose Route Stop Time Status Admin Acetaminophen 650 MG Q6P PRN 10/02 2029 AC 10/04 PO 0134 Benzonatate 100 MG TID 10/04 2014 AC 10/04 PO 2138 Heparin Sodium 5,000 UNIT Q8 10/04 1230 AC 10/05 (Porcine) SC 0602 Ibuprofen 600 MG Q6P PRN 10/02 2029 AC 10/03 PO 1821 Oxycodone HCl 5 MG Q4 HRS NEEDED PRN 10/03 1915 AC 10/04 PO 2001 Polyethylene Glycol 17 GM DAILY 10/05 05 AC 10/05 PO 0602 Ramelteon 8 MG AT BEDTIME 10/02 220 AC 10/04 PO 2138 Senna/Docusate Sodium 1 TAB BID 10/05 05 AC 10/05 PO 0602 Vital Signs & I&O Last 24 Hrs of Vitals and I&O: Vital Signs Date Time Temp Pulse Resp B/P Pulse O2 O2 Flow FiO2 Ox Delivery Rate 10/05 0000 93 Room Air 10/04 2335 97.5 75 18 128/78 93 Room Air 10/04 1600 98.0 80 20 120/80 94 Room Air 10/04 0800 97 Nasal 2.0L Cannula 10/04 0800 97.9 64 20 110/60 94 Nasal 2.0L Cannula Intake & Output 10/05 0800 10/05 0000 10/04 1600 Intake Total 600 400 450 Output Total 100 240 710 Balance 500 160 -260 Intake, IV 0 0 0 Intake, Oral 600 400 450 Number 0 0 0 Bowel Movements Output, Chest 240 60 Tube Drainage Output, 100 Drainage Output, Urine 650 Room air oxygen saturation 93% exam of his chest shows good air entry Impression/Plan Impression/Plan Impression/Plan: 76-year-old gentleman with primary lung cancer and probable malignant effusion. Recommendations: Repeat chest x-ray this morning. Follow-up cultures and cytology. The pleural fluid drainage persists may need CT surgery evaluation for Pleurx catheter and one cytology identified oncology evaluation
[2016-10-05 08:00] VITALS: BP 140/78
--- NOTE | 2016-10-05 08:37 | RADIOLOGY REPORT ---
EXAMINATION: XR PORTABLE CHEST CLINICAL INFORMATION: Pneumothorax with tube in place. Shortness of breath. COMPARISON: Multiple prior examinations most recent x-ray and chest CT 10/04/2016. TECHNIQUE: Portable view of the chest was obtained. FINDINGS: A right pleural drainage catheter projects over the region of the right costophrenic angle unchanged. A small amount of air is noted in the adjacent chest wall\E\soft tissues. There is persistent small pneumothorax on the right with the visceral pleural line noted the 3.5 cm caudal to the apex of the right hemithorax and at the level of the posterior right fourth. There is persistent bibasilar opacities compatible with bibasilar atelectasis. I do not appreciate definite pleural effusion. The cardiac silhouette mediastinum and pulmonary vascularity are normal. IMPRESSION: Stable appearance of the chest with the right drainage catheter in place and stable pneumothorax. Stable bibasilar opacities most likely atelectasis.
--- NOTE | 2016-10-05 14:45 | NUR ---
TO MRI VIA STRETCHER; PIGTAIL CHEST TUBE TO WATER SEAL; PATIENT ALERT ORIENTED X3; NO COMPLAINTS.
--- NOTE | 2016-10-05 15:45 | NUR ---
REPORT GIVEN TO SUSSY RN 2NA. PATIENT TO RETURN FROM MRI TO ROOM 234.
--- NOTE | 2016-10-05 16:21 | PN- Thoracic Surgery ---
Surgical Brief Attending Note Brief Attending Note: Spoke with Dr. Lam. Cytology was positive for carcinoma. Drain can be continued until the drainage is minimal. The drain will then be removed and depending upon his reaccumulation he may need a Pleurx catheter in the future. There is no current thoracic surgical issue. Diagnosis is made from the pleural effusion.
--- NOTE | 2016-10-05 17:55 | Cons- Oncology ---
General Information and HPI Consulting Request Date of Consult: 10/05/16 Requested By: CHENTE MCCURDY M.D Reason for Consult: Positive cytology Source of Information: patient, old records Exam Limitations: no limitations History of Present Illness: Mr. Flores is a 76-year-old male presented to the hospital for further evaluation of pleural effusion. He has been progressively short of breath of the last few weeks. He was treated with prednisone and albuterol for bronchitis. This did not improve. He had CXR done by his PCP on 10/02/2016 and demonstrated pleural effusion. He was directed to come to the ED for evaluation. CT of the chest on 10/02 demonstrated moderate to large right pleural effusion with right lower lobe compressive atelectasis. Small consolidation in the right upper lobe. He underwent a thoracentesis on 10/03/2015 and had 2L removed. He did become hypotensive after the procedure and had a post-procedure pneumothorax on CXR. He was monitored in the ICU with chest tube placemenet. Repeat CT scan on 10/04 demonstrated trace bilateral pleural effusions, a 2.0 x 1.3 cm spiculated mass in the right upper lobe, concerning for neoplasm. There is subcutaneous air around the right chest, and there is a small pneumothorax. Cytology from the thoracentesis came back as atypical cells consistent with non- small cell carcinoma, favor adenocarcinoma. He currently feels well. He still has a chest tube in place. He denies any fever or chills. Of note, he was a previous smoker 30 years ago. He denies any significant alcohol usage. He denies any drug usage. Allergies/Medications Allergies: Coded Allergies: No Known Allergies (10/02/16) Home Med List: Albuterol Sulfate (Proair Hfa) 90 MCG HFA.AER.AD 2 PUF INH Q4-6 PRN PRN RESPIRATORY (Reported) Cholecalciferol (Vitamin D3) (Vitamin D) (Unknown Strength) CAPSULE (Unknown Dose) PO DAILY SUPPLEMENT (Reported) Prednisone 20 MG TABLET 1 TAB PO BID RESPIRATORY (Reported) Current Medications: Current Medications Sig/Ezequiel Start time Last Medication Dose Route Stop Time Status Admin Acetaminophen 650 MG Q6P PRN 10/02 2029 AC 10/04 PO 0134 Benzonatate 100 MG TID 10/04 2014 AC 10/05 PO 1623 Heparin Sodium 5,000 UNIT Q8 10/04 1230 AC 10/05 (Porcine) SC 1625 Ibuprofen 600 MG Q6P PRN 10/02 2030 AC 10/05 PO 1032 Oxycodone HCl 5 MG Q4 HRS NEEDED PRN 10/03 1915 AC 10/05 PO 1623 Polyethylene Glycol 17 GM DAILY 10/05 0515 10/05 PO 0602 Ramelteon 8 MG AT BEDTIME 10/02 2200 AC 10/04 PO 2138 Senna/Docusate Sodium 1 TAB BID 10/05 0515 10/05 PO 0602 Review of Systems Review of Systems Constitutional: Denies: chills, fever, weakness. EENTM: Denies: blurred vision, double vision, epistaxis, nasal pain, throat pain. Cardiovascular: Reports: chest pain. Denies: palpitations, syncope. Respiratory: Reports: cough, short of breath. GI: Denies: abdominal pain, bloating, constipation, diarrhea. Genitourinary: Denies: dysuria. Musculoskeletal: Reports: back pain. Skin: Denies: erythema, lesions. Neurological/Psychological: Reports: anxiety. Denies: confusion. Hematologic/Endocrine: Denies: bruising, bleeding. Immunologic/Allergic: Denies: no symptoms. All Other Systems: Reviewed and Negative Past History Travel History Traveled to [place] past 21 day No Medical History Blood Transfusion Hx: No Gastrointestinal: umbilical hernia Musculoskeletal: mild rotator cuff tear Surgical History Surgical History: non-contributory Family History Relations & Conditions If Any: FATHER FH: stroke Psychosocial History Where Do You Live? Home Who Do You Live With? spouse Services at Home: None Smoking Status: Former Smoker ETOH Use: occasional use Illicit Drug Use: denies illicit drug use Functional Ability ADLs Independent: dressing, eating, toileting, bathing. Ambulation: independent IADLs Independent: shopping, housework, finances, food prep, telephone, transportation , medication admin. 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 Exam & Diagnostic Data Vital Signs and I&O Vital Signs Date Time Temp Pulse Resp B/P Pulse O2 O2 Flow FiO2 Ox Delivery Rate 10/05 0800 94 Room Air 10/05 0800 98.8 82 20 140/78 94 Room Air 10/05 0000 93 Room Air 10/04 2335 97.5 75 18 128/78 93 Room Air Intake & Output 10/05 1600 10/05 0800 10/05 0000 Intake Total 800 600 400 Output Total 170 100 240 Balance 630 500 160 Intake, IV 0 0 Intake, Oral 800 600 400 Number 0 0 Bowel Movements Output, Chest 170 240 Tube Drainage Output, 100 Drainage Physical Exam General Appearance: well developed/nourished, no apparent distress, alert, comfortable Head: atraumatic, normal appearance Eyes: Bilateral: PERRL. Ears, Nose, Throat: normal pharynx Respiratory: Right posterior chest pain at the chest tube inserting point; Crackles at the bases bilateral Cardiovascular: regular rate/rhythm Gastrointestinal: normal bowel sounds, soft, non-tender, no organomegaly Extremities: normal inspection, normal capillary refill, normal range of motion Skin: intact, normal color, warm/dry Lymphatic: no anterior cervical usama Last 48 Hours of Lab Results: Laboratory Tests 10/05 10/04 0518 0620 Chemistry Sodium (137 - 145 mmol/L) 137 139 Potassium (3.5 - 5.1 mmol/L) 4.4 4.5 Chloride (98 - 107 mmol/L) 100 103 Carbon Dioxide (22 - 30 mmol/L) 28 27 Anion Gap (5 - 16) 8 9 BUN (9 - 20 mg/dL) 20 19 Creatinine (0.7 - 1.2 mg/dL) 0.9 0.8 Estimated GFR (>60 ml/min) > 60 > 60 Glucose (65 - 99 mg/dL) 102 H 106 H Calcium (8.4 - 10.2 mg/dL) 8.8 9.0 Phosphorus (2.5 - 4.5 mg/dL) 3.2 4.4 Magnesium (1.6 - 2.3 mg/dL) 2.0 2.0 Total Bilirubin (0.2 - 1.3 mg/dL) 0.5 0.5 AST (17 - 59 U/L) 18 15 L ALT (21 - 72 U/L) 34 25 Albumin (3.5 - 5.0 g/dL) 3.4 L 3.4 L Hematology CBC w Diff NO MAN DIFF REQ NO MAN DIFF REQ WBC (4.8 - 10.8 /CUMM) 11.2 H 11.4 H RBC (4.70 - 6.10 /CUMM) 4.32 L 4.29 L Hgb (14.0 - 18.0 G/DL) 12.8 L 12.7 L Hct (42 - 52 %) 38.4 L 38.0 L MCV (80.0 - 94.0 FL) 89.0 88.6 MCH (27.0 - 31.0 PG) 29.6 29.6 RDW (11.5 - 14.5 %) 13.4 13.3 Plt Count (130 - 400 /CUMM) 309 316 MPV (7.4 - 10.4 FL) 8.1 8.1 Gran % (42.2 - 75.2 %) 75.7 H 79.9 H Lymphocytes % (20.5 - 51.1 %) 14.0 L 11.4 L Monocytes % (1.7 - 9.3 %) 8.6 7.5 Eosinophils % (0 - 5 %) 1.2 1.0 Basophils % (0.0 - 2.0 %) 0.5 0.2 Absolute Granulocytes (1.4 - 6.5 /CUMM) 8.5 H 9.1 H Absolute Lymphocytes (1.2 - 3.4 /CUMM) 1.6 1.3 Absolute Monocytes (0.10 - 0.60 /CUMM) 1.0 H 0.9 H Absolute Eosinophils (0.0 - 0.7 /CUMM) 0.1 0.1 Absolute Basophils (0.0 - 0.2 /CUMM) 0.1 0 PUBS MCHC (33.0 - 37.0 G/DL) 33.2 33.4 10/03 1807 Hematology CBC w Diff NO MAN DIFF REQ WBC (4.8 - 10.8 /CUMM) 11.4 H RBC (4.70 - 6.10 /CUMM) 4.30 L Hgb (14.0 - 18.0 G/DL) 12.7 L Hct (42 - 52 %) 38.0 L MCV (80.0 - 94.0 FL) 88.4 MCH (27.0 - 31.0 PG) 29.5 RDW (11.5 - 14.5 %) 13.7 Plt Count (130 - 400 /CUMM) 350 MPV (7.4 - 10.4 FL) 8.1 Gran % (42.2 - 75.2 %) 83.5 H Lymphocytes % (20.5 - 51.1 %) 10.0 L Monocytes % (1.7 - 9.3 %) 5.8 Eosinophils % (0 - 5 %) 0.4 Basophils % (0.0 - 2.0 %) 0.3 Absolute Granulocytes (1.4 - 6.5 /CUMM) 9.5 H Absolute Lymphocytes (1.2 - 3.4 /CUMM) 1.1 L Absolute Monocytes (0.10 - 0.60 /CUMM) 0.7 H Absolute Eosinophils (0.0 - 0.7 /CUMM) 0 Absolute Basophils (0.0 - 0.2 /CUMM) 0 PUBS MCHC (33.0 - 37.0 G/DL) 33.3 Imaging/Other Studies: CT chest 10/04/2015 1. There has been interval drainage of the right pleural effusion when compared to prior imaging. A pigtail catheter is noted at the right base posterolaterally. There are trace bilateral pleural effusions. 2. There is a 2.0 x 1.3 cm spiculated mass in the right upper lobe, concerning for neoplasm. This could be further assessed with PET CT scan. 3. There is subcutaneous air around the right chest, and there is a small pneumothorax. Assessment/Plan Assessment: Mr. Flores is a 76-year-old male without significant history of medical issue who presented to the ED after noted to have pleural effusion by his PCP. Thoracentesis has helped his symptoms. Unfortunately, his pleural effusion returned as non-small cell carcinoma favoring adenocarcinoma. CT imaging demonstrated a right upper lobe medially abutting to the superior mediastinum measuring 2.0 x 1.3 cm in oblique axial dimensions. This suggest his primary is likely lung origin. He should have complete staging scan, PET/CT whole body. He should have MRI of the brain. Pleural fluid was not able to identify a primary at the moment. Pathology should be contacted to determine if they have enough sample to make a diagnosis and molecultar testing. If note, the fluid from the chest tube may be able to be use. Otherwise, he may need a biopsy of the primary mass or other more assessable area. I went over the general diagnosis and need for therapy given his M1a disease with positive pleural fluid. Thoracic surgery is seeing him for possible need for local therapy for fluid. Molecular markers will be useful to treatment plans. Recommendations: 1. MRI brain 2. PET/CT body 3. Contact pathology to determine sample size and potential need for more biopsy 4. Check CEA Problem List: 1. Pleural effusion 2. Dyspnea 3. Carcinoma Other Findings/Comments: Please call [phone] with any questions. Consult Acknowledgment - Thank you for your consult request.
[2016-10-05 19:02] VITALS: BP 130/80
--- NOTE | 2016-10-05 19:23 | MRI REPORT ---
EXAMINATION: MR BRAIN WITHOUT AND WITH CONTRAST CLINICAL INFORMATION: New cancer cells in pleural effusion. Assess for metastases. COMPARISON: CT scan of the head 04/23/2011. TECHNIQUE: MRI of the brain was obtained using routine sequences before and after the intravenous administration of 7 mL of OptiMARK. FINDINGS: No diffusion abnormalities are identified to suggest an acute or subacute infarct. No mass effect or midline shift is seen. The ventricles and sulci are commensurately prominent consistent with mild diffuse volume loss. There are moderate scattered areas of increased T2 and FLAIR signal in the periventricular and subcortical white matter and in the norma, consistent with sequelae of chronic microvascular ischemic disease. 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 The brainstem and cerebellum are normal. On postcontrast imaging, there is no abnormal parenchymal or leptomeningeal enhancement. No pathologic magnetic susceptibility artifact is identified on the gradient refocused acquisition. The craniovertebral junction, marrow signal, and midline structures are normal. The major intracranial flow-voids at the level of the [place] are preserved. The dural venous sinus flow-voids are maintained. The mastoid air cells are well-aerated. There is mucoperiosteal thickening in the bilateral anterior ethmoid and in the sphenoid sinuses. There is trace fluid in the left maxillary sinus. There has been a left lens extraction. IMPRESSION: 1. There are no acute bleeds or infarcts. 2. There are no masses or areas of abnormal enhancement. 3. There are changes consistent with mild diffuse volume loss and there are sequelae of chronic microvascular ischemic disease.
[2016-10-05 22:36] VITALS: BP 118/60
--- NOTE | 2016-10-05 23:33 | NUR ---
PATIENT TRANSFERRED FROM ICU AT 1600. PATIENT ALERT AND ORIENTED X 3. PIG TAIL ATTACHED TO CHEST TUBE TO LWS FROM RIGHT BACK. ONCOLOGY () AND CART DRIVER JOSE R IN TO SEE PATIENT PER FAMILY REQUEST. PAIN MEDICATION GIVEN ORDERED. PATIENT COMFORTABLE AT THIS TIME. CALL LIGHT WITHIN REACH.
[2016-10-06 06:38] VITALS: BP 150/90
--- NOTE | 2016-10-06 06:57 | PN- Housestaff ---
VI NAM,SONIA 10/06/16 0657: Subjective Follow-up For: Carcinoma Right pleural effusion Subjective: Patient seen and examined at bedside this AM. He reports he did not sleep well as his recent diagnosis is unfavorable. Patient has had discussions with oncology, pulmonology and thoracic surgery. Review of Systems Constitutional: Denies: chills, fever, malaise. EENTM: Denies: blurred vision, visual changes, hearing changes. Cardiovascular: Denies: chest pain, palpitations. Respiratory: Denies: cough, short of breath, wheezing. Gastrointestinal: Denies: abdominal pain, constipation, diarrhea, distention, nausea. Genitourinary: Denies: dysuria. Musculoskeletal: Reports: muscle pain (At site of chest tube). Skin: Denies: change in skin color, change in hair/nails. Neurological/Psychological: Denies: confusion, headache, numbness, tingling. Hematologic/Endocrine: Denies: bruising, bleeding. Immunologic/Allergic: Denies: splenectomy. Objective Last 24 Hrs of Vital Signs/I&O Vital Signs Date Time Temp Pulse Resp B/P Pulse O2 O2 Flow FiO2 Ox Delivery Rate 10/06 0800 93 Room Air 10/06 0638 98.1 80 20 150/90 92 Room Air 10/06 0000 94 Room Air 10/05 2236 98.0 78 20 118/60 92 Room Air 10/05 1902 98.7 80 20 130/80 93 Room Air 10/05 1600 94 Nasal Room Air Cannula Intake & Output 10/06 1600 10/06 0800 10/06 0000 Intake Total 125 480 Output Total 50 130 Balance 75 350 Intake, Oral 125 480 Number 1 Bowel Movements Output, Chest 50 130 Tube Drainage Patient 180 lb Weight Physical Exam General Appearance: Alert, Oriented X3, Cooperative, No Acute Distress Skin: No Significant Lesion, Skin surrounding chest tube insertion site clean and no signs of infection/erythema. HEENT: Atraumatic, PERRLA, Mucous Membr. moist/pink Neck: Supple Lymphatic: Cervical nl Cardiovascular: Regular Rate, Normal S1, Normal S2 Lungs: Clear to Auscultation, Normal Air Movement Abdomen: Normal Bowel Sounds, Soft Neurological: Normal Gait, Normal Speech, Strength at 5/5 X4 Ext, Normal Tone Extremities: No Clubbing, No Cyanosis, No Edema Vascular: Pulses Symmetrical Current Medications: Current Medications Sig/Ezequiel Start time Last Medication Dose Route Stop Time Status Admin Acetaminophen 650 MG Q6P PRN 10/02 2029 AC 10/04 PO 0134 Benzonatate 100 MG TID 10/04 2014 AC 10/06 PO 0838 Heparin Sodium 5,000 UNIT Q8 10/04 1230 AC 10/06 (Porcine) SC 0557 Ibuprofen 600 MG Q6P PRN 10/02 2029 AC 10/05 PO 202 Oxycodone HCl 5 MG Q4 HRS NEEDED PRN 10/03 191 AC 10/05 PO 213 Polyethylene Glycol 17 GM DAILY 10/05 514 10/06 PO 08 Ramelteon 8 MG AT BEDTIME 10/02 2199 AC 10/05 PO 213 Senna/Docusate Sodium 1 TAB BID 10/05 514 10/06 PO 08 Last 24 Hrs of Lab/Tio Results Last 24 Hrs of Labs/Mics: Laboratory Tests 10/06/16 0640: Anion Gap 9, Estimated GFR > 60, BUN/Creatinine Ratio 22.9, CBC w Diff NO MAN DIFF REQ, RBC 4.53 L, MCV 88.2, MCH 29.2, RDW 13.4, MPV 8.3, Gran % 79.9 H, Lymphocytes % 9.4 L, Monocytes % 9.7 H, Eosinophils % 0.9, Basophils % 0.1, Absolute Granulocytes 8.5 H, Absolute Lymphocytes 1.0 L, Absolute Monocytes 1.0 H, Absolute Eosinophils 0.1, Absolute Basophils 0, PUBS MCHC 33.1 10/06/16 0600: Carcinoembryonic Ag Pending 10/06/16 0600: Carcinoembryonic Ag Cancelled Orders Radiology Findings: EXAMINATION: XR PORTABLE CHEST CLINICAL INFORMATION: Pneumothorax with tube in place. Shortness of breath. COMPARISON: Multiple prior examinations most recent x-ray and chest CT 10/04/2016. TECHNIQUE: Portable view of the chest was obtained. FINDINGS: A right pleural drainage catheter projects over the region of the right costophrenic angle unchanged. A small amount of air is noted in the adjacent chest wall\E\soft tissues. There is persistent small pneumothorax on the right with the visceral pleural line noted the 3.5 cm caudal to the apex of the right hemithorax and at the level of the posterior right fourth. There is persistent bibasilar opacities compatible with bibasilar atelectasis. I do not appreciate definite pleural effusion. The cardiac silhouette mediastinum and pulmonary vascularity are normal. IMPRESSION: Stable appearance of the chest with the right drainage catheter in place and stable pneumothorax. Stable bibasilar opacities most likely atelectasis. Miscellaneous Findings: EXAMINATION: MR BRAIN WITHOUT AND WITH CONTRAST CLINICAL INFORMATION: New cancer cells in pleural effusion. Assess for metastases. COMPARISON: CT scan of the head 04/23/2011. TECHNIQUE: MRI of the brain was obtained using routine sequences before and after the intravenous administration of 7 mL of OptiMARK. FINDINGS: No diffusion abnormalities are identified to suggest an acute or subacute infarct. No mass effect or midline shift is seen. The ventricles and sulci are commensurately prominent consistent with mild diffuse volume loss. There are moderate scattered areas of increased T2 and FLAIR signal in the periventricular and subcortical white matter and in the norma, consistent with sequelae of chronic microvascular ischemic disease. 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 The brainstem and cerebellum are normal. On postcontrast imaging, there is no abnormal parenchymal or leptomeningeal enhancement. No pathologic magnetic susceptibility artifact is identified on the gradient refocused acquisition. The craniovertebral junction, marrow signal, and midline structures are normal. The major intracranial flow-voids at the level of the [place] of [place] are preserved. The dural venous sinus flow-voids are maintained. The mastoid air cells are well-aerated. There is mucoperiosteal thickening in the bilateral anterior ethmoid and in the sphenoid sinuses. There is trace fluid in the left maxillary sinus. There has been a left lens extraction. IMPRESSION: 1. There are no acute bleeds or infarcts. 2. There are no masses or areas of abnormal enhancement. 3. There are changes consistent with mild diffuse volume loss and there are sequelae of chronic microvascular ischemic disease. EXAMINATION: CT CHEST WITH CONTRAST CLINICAL INFORMATION: Pleural effusion, shortness of breath. Mass/malignancy. COMPARISON: CT scan of the chest 10/02/2016, and chest x-ray also obtained 10/04/2016. TECHNIQUE: Multidetector volumetric CT imaging of the chest was obtained after the administration of 74 mL of Optiray 320 intravenous contrast without immediate adverse reactions. Axial MIP volume rendering provided. Sagittal and coronal reformatted images were obtained. DLP: 294.02 mGy-cm FINDINGS: FOOD BEVERAGE SERVER: A pigtail chest drain is noted at the right base laterally. LUNGS: There is a spiculated mass in the right upper lobe medially abutting to the superior mediastinum which measures 2.0 x 1.3 cm in oblique axial dimensions. There is atelectasis at the right base. There are patchy opacities with air bronchograms at the right base, which may be consistent with consolidation. There are linear areas of opacification in the right middle lobe consistent with atelectasis. MEDIASTINUM: The thyroid gland appears normal. The mediastinum is central. There are atheromatous calcifications of the aorta and great vessels of the neck. There is no mediastinal or hilar lymphadenopathy. There are small mediastinal lymph nodes. The heart is normal in size. There is no pericardial effusion. PLEURA: The large pleural effusion is no longer visualized. There are trace bilateral pleural effusions with adjacent underlying atelectasis. There is a small pneumothorax. A pigtail catheter from the right posterior chest is noted at the right base. AXILLA: There is no axillary lymphadenopathy. There is subcutaneous air in the right chest wall extending laterally and posteriorly, and most prominent at the right lung base. UPPER ABDOMEN: There is an accessory splenule. The adrenal glands are normal in size. OSSEOUS STRUCTURES: There are multilevel degenerative changes in the thoracic spine. There is a sclerotic density in the medial left clavicle, consistent with a bone island. There are degenerative changes at the left shoulder joint. IMPRESSION: 1. There has been interval drainage of the right pleural effusion when compared to prior imaging. A pigtail catheter is noted at the right base posterolaterally. There are trace bilateral pleural effusions. 2. There is a 2.0 x 1.3 cm spiculated mass in the right upper lobe, concerning for neoplasm. This could be further assessed with PET CT scan. 3. There is subcutaneous air around the right chest, and there is a small pneumothorax. Assessment/Plan Assessment: Mr. Flores is a pleasant 76 year old male with no significant PMH on no daily medications other than vitamin D who was sent to [facility] by his PCP after workup for dyspnea found that the patient had a moderate right pleural effusion. Patient reported mild dyspnea, worse with exertion and progressing over the last month. He also endorses occasional cough but was otherwise without symptoms. In the ED: Vital signs showed T 98.2, HR 87, RR 18, BP 148/92 and O2 saturation of 94% on RA. Labs showed mild normocytic anemia but were otherwise unremarkable. Chest CT showed moderate to large right pleural effusion with right lower lobe compressive atelectasis. The following is the current management on the general medicine floor: 1. Right pleural effusion * Supplemental O2 and TRC nebs as needed, ACS ruled out with troponin negative x 2 * Patient had horacentesis that removed about 2 L and this was sent for cytology , culture, protein, pH, LDH etc and AFB * Patient became hypotensive to 78 systolic and was mildly symptomatic with lethargy after the procedure. Post-procedure CXR showed a PTX. Patient was transferred to ICU for close monitoring and has since been sent to the floor for continued care. * Pleural fluid negative for AFB and cytology suggestive of carcinoma. Awaiting final pathology to determine appropriate therapy. * Oncology consult appreciated with Dr. Beckwith, suggested whole body CT/PET and obtaining CEA. Will call pathology to discuss if sample size is adequate and potential need for more biopsy. Dr. Beckwith stages disease at M1a stage. * Patient's chest tube continues to be on suction, though we have contacted IR to remove chest tube today as output has been low. * Pulm consult with Dr. Doran appreciated, suggests patient may need pleurx catheter if reaccumulation of fluid occurs * Appreciate surgical recommendations, no current thoracic surgical issue. 2. Influenza vaccination * Patient received flu shot on 10/03 3. Pain * Roxicodone 5 mg Q6h for severe pain * Motrin 600 mg Q6P for moderate pain * Tylenol 650 mg Q6P for mild pain 4. Sleep * Rozerem 8 mg PO at bedtime FULL CODE DVTP: Alps Diet: Regular Mild-severe pain pathways Problem List: 1. Pleural effusion 2. Dyspnea 3. Carcinoma Pain Ratin Pain Location: Right chest at site of chest tube insertion. Pain Goal: Pain 4 or less Pain Plan: Tylenol for mild, motrin for moderate and roxicodone for severe pain. Tomorrow's Labs & Rationales: CBC (after removal of chest tube, monitor H&H), BEP (monitor electrolytes) CHENTE MCCURDY MD 10/06/16 1308: Attending MD Review Statement Attending Statement Attending MD Statement: examined this patient, discuss w/resident/PA/PUBLISHING MANAGER, agreed w/resident/PA/PUBLISHING MANAGER, discussed with family, reviewed EMR data (avail), discussed with nursing, discussed with case mgmt, amended to note Attending Assessment/Plan: Patient seen and examined. Resting comfortably a motility acute distress. No issues overnight. Biopsy results have been discussed with the patient. He has met with the oncology service. Long-term plan will be an outpatient PET scan and follow-up with the oncology service. He and his son will be discussing further with the oncology service to determine where they'll be following up. His son has suggested the possibility of following up with an oncology service in [place]. Drainage from the chest tube has reduce but is still present. He put out about 300 mL yesterday. Will follow-up with the pulmonary and cardiothoracic surgery regarding when the chest tube, discontinued. Once this is done he'll be reimaged in about 4-48 hours to determine if there is significant reaccumulation of fluid
--- NOTE | 2016-10-06 08:05 | PN- Pulmonary ---
Subjective HPI/Critical Care Issues: Oncology input noted. Pleural fluid drainage appears to be decreasing. He is comfortable on room air without shortness of breath. Objective Current Medications: Current Medications Sig/Ezequiel Start time Last Medication Dose Route Stop Time Status Admin Acetaminophen 650 MG Q6P PRN 10/02 2029 AC 10/04 PO 0134 Benzonatate 100 MG TID 10/04 2014 AC 10/05 PO 213 Heparin Sodium 5,000 UNIT Q8 10/04 1230 AC 10/06 (Porcine) SC 0557 Ibuprofen 600 MG .STK-MED ONE 10/05 1028 DC PO 10/05 1029 Ibuprofen 600 MG Q6P PRN 10/02 2029 AC 10/05 PO 2028 Oxycodone HCl 5 MG Q4 HRS NEEDED PRN 10/03 191 AC 10/05 PO 213 Polyethylene Glycol 17 GM DAILY 10/05 05 10/05 PO 06 Ramelteon 8 MG AT BEDTIME 10/02 2200 AC 10/05 PO 213 Senna/Docusate Sodium 1 TAB BID 10/05 514 AC 10/05 PO 2028 Vital Signs & I&O Last 24 Hrs of Vitals and I&O: Vital Signs Date Time Temp Pulse Resp B/P Pulse O2 O2 Flow FiO2 Ox Delivery Rate 10/06 0638 98.1 80 20 150/90 92 Room Air 10/06 0000 94 Room Air 10/05 2236 98.0 78 20 118/60 92 Room Air 10/05 1902 98.7 80 20 130/80 93 Room Air 10/05 1600 94 Nasal Room Air Cannula Intake & Output 10/06 1600 10/06 0800 10/06 0000 Intake Total 125 480 Output Total 50 130 Balance 75 350 Intake, Oral 125 480 Number 1 Bowel Movements Output, Chest 50 130 Tube Drainage Room air oxygen saturation 92% exam of his chest shows better air entry over the right chest Impression/Plan Impression/Plan Impression/Plan: 76-year-old gentleman with stage IV lung cancer and malignant pleural effusion. Recommendations: Given the presence of pleural malignant implants continued pleural fluid drainage is to be expected. Once his tube is removed to a likely reaccumulate and will require a Pleurx catheter. Remainder of his workup to be done as an outpatient
[2016-10-06 09:23] LABS: ABSOLUTE BASOPHIL COUNT 0 /CUMM (0.0-0.2); ABSOLUTE EOSINOPHIL COUNT 0.1 /CUMM (0.0-0.7); ABSOLUTE GRANULOCYTE CT 8.5 /CUMM (1.4-6.5); BASOPHIL % 0.1 % (0.0-2.0); EOSINOPHIL % 0.9 % (0-5); GRANULOCYTE % 79.9 % (42.2-75.2); MEAN CORPUSCULAR HGB 29.2 PG (27.0-31.0); MEAN CORPUSCULAR HGB CONC 33.1 G/DL (33.0-37.0); MEAN CORPUSCULAR VOLUME 88.2 FL (80.0-94.0); MEAN PLATELET VOLUME 8.3 FL (7.4-10.4); PLATELET COUNT 313 /CUMM (130-400); RBC DISTRIBUTION WIDTH 13.4 % (11.5-14.5); RED BLOOD CELL CT 4.53 /CUMM (4.70-6.10); WHITE BLOOD CELL COUNT 10.6 /CUMM (4.8-10.8)
--- NOTE | 2016-10-06 14:13 | PN- Oncology ---
Subjective Subjective: He feels well but still has persistent pain in the right flank. Review of Systems Cardiovascular: Reports: chest pain (right posterior chest). Respiratory: Reports: short of breath. All Other Systems: Reviewed and Negative Objective Vital Signs and I&Os Vital Signs Date Time Temp Pulse Resp B/P Pulse O2 O2 Flow FiO2 Ox Delivery Rate 10/06 0800 93 Room Air 10/06 0638 98.1 80 20 150/90 92 Room Air 10/06 0000 94 Room Air 10/05 2236 98.0 78 20 118/60 92 Room Air 10/05 1902 98.7 80 20 130/80 93 Room Air 10/05 1600 94 Nasal Room Air Cannula Intake & Output 10/06 1600 10/06 0800 10/06 0000 10/05 1600 10/05 0800 10/05 0000 Intake Total 125 480 800 600 400 Output Total 50 130 170 100 240 Balance 75 350 630 500 160 Intake, IV 0 0 Intake, Oral 125 480 800 600 400 Number 1 0 0 Bowel Movements Output, Chest 50 130 170 240 Tube Drainage Output, 100 Drainage Patient 81.647 kg Weight Physical Exam General Appearance: alert, awake, comfortable Respiratory: normal breath sounds, no respiratory distress Cardiovascular: regular rate/rhythm Back: right posterior thorax tenderness at CT insertion site Extremities: normal inspection, normal capillary refill Current Medications: Current Medications Sig/Ezequiel Start time Last Medication Dose Route Stop Time Status Admin Acetaminophen 650 MG Q6P PRN 10/02 2029 AC 10/04 PO 013 Benzonatate 100 MG TID 10/04 2014 AC 10/06 PO 0838 Heparin Sodium 5,000 UNIT Q8 10/04 1230 AC 10/06 (Porcine) SC 0557 Ibuprofen 600 MG Q6P PRN 10/02 2029 AC 10/05 PO 2028 Oxycodone HCl 5 MG Q4 HRS NEEDED PRN 10/03 1914 AC 10/05 PO 2135 Polyethylene Glycol 17 GM DAILY 10/05 05 AC 10/06 PO 0838 Ramelteon 8 MG AT BEDTIME 10/02 2199 AC 10/05 PO 2135 Senna/Docusate Sodium 1 TAB BID 10/05 514 AC 10/06 PO 0838 Results Last 24 Hours of Lab Results: Laboratory Tests 10/06 10/06 10/06 0640 0600 0600 Chemistry Sodium (137 - 145 mmol/L) 136 L Potassium (3.5 - 5.1 mmol/L) 4.3 Chloride (98 - 107 mmol/L) 100 Carbon Dioxide (22 - 30 mmol/L) 27 Anion Gap (5 - 16) 9 BUN (9 - 20 mg/dL) 16 Creatinine (0.7 - 1.2 mg/dL) 0.7 Estimated GFR (>60 ml/min) > 60 BUN/Creatinine Ratio (7 - 25 %) 22.9 Carcinoembryonic Ag Pending Cancelled Hematology CBC w Diff NO MAN DIFF REQ WBC (4.8 - 10.8 /CUMM) 10.6 RBC (4.70 - 6.10 /CUMM) 4.53 L Hgb (14.0 - 18.0 G/DL) 13.2 L Hct (42 - 52 %) 40.0 L MCV (80.0 - 94.0 FL) 88.2 MCH (27.0 - 31.0 PG) 29.2 RDW (11.5 - 14.5 %) 13.4 Plt Count (130 - 400 /CUMM) 313 MPV (7.4 - 10.4 FL) 8.3 Gran % (42.2 - 75.2 %) 79.9 H Lymphocytes % (20.5 - 51.1 %) 9.4 L Monocytes % (1.7 - 9.3 %) 9.7 H Eosinophils % (0 - 5 %) 0.9 Basophils % (0.0 - 2.0 %) 0.1 Absolute Granulocytes (1.4 - 6.5 /CUMM) 8.5 H Absolute Lymphocytes (1.2 - 3.4 /CUMM) 1.0 L Absolute Monocytes (0.10 - 0.60 /CUMM) 1.0 H Absolute Eosinophils (0.0 - 0.7 /CUMM) 0.1 Absolute Basophils (0.0 - 0.2 /CUMM) 0 PUBS MCHC (33.0 - 37.0 G/DL) 33.1 Recent Imaging Studies: MRI brain 10/05/2016: negative Assessment/Plan Problem List: 1. Carcinoma 2. Dyspnea 3. Pleural effusion
--- NOTE | 2016-10-06 14:14 | PN- Oncology ---
See Addendum Subjective Subjective: He is feeling about the same. He still has pain on his right side. Review of Systems Constitutional: Denies: chills, fever. Cardiovascular: Reports: chest pain. Respiratory: Reports: short of breath. Gastrointestinal: Denies: abdominal pain. Neurological/Psychological: Reports: anxiety. All Other Systems: Reviewed and Negative Objective Vital Signs and I&Os Vital Signs Date Time Temp Pulse Resp B/P Pulse O2 O2 Flow FiO2 Ox Delivery Rate 10/06 0800 93 Room Air 10/06 0638 98.1 80 20 150/90 92 Room Air 10/06 0000 94 Room Air 10/05 2236 98.0 78 20 118/60 92 Room Air 10/05 1902 98.7 80 20 130/80 93 Room Air 10/05 1600 94 Nasal Room Air Cannula Intake & Output 10/06 1600 10/06 0800 10/06 0000 10/05 1600 10/05 0800 10/05 0000 Intake Total 125 480 800 600 400 Output Total 50 130 170 100 240 Balance 75 350 630 500 160 Intake, IV 0 0 Intake, Oral 125 480 800 600 400 Number 1 0 0 Bowel Movements Output, Chest 50 130 170 240 Tube Drainage Output, 100 Drainage Patient 81.647 kg Weight Current Medications: Current Medications Sig/Ezequiel Start time Last Medication Dose Route Stop Time Status Admin Acetaminophen 650 MG Q6P PRN 10/02 2029 AC 10/04 PO 013 Benzonatate 100 MG TID 10/04 2014 AC 10/06 PO 0838 Heparin Sodium 5,000 UNIT Q8 10/04 1230 AC 10/06 (Porcine) SC 0557 Ibuprofen 600 MG Q6P PRN 10/02 2029 AC 10/05 PO 2028 Oxycodone HCl 5 MG Q4 HRS NEEDED PRN 10/03 1914 AC 10/05 PO 2135 Polyethylene Glycol 17 GM DAILY 10/05 514 AC 10/06 PO 0838 Ramelteon 8 MG AT BEDTIME 10/02 2199 AC 10/05 PO 213 Senna/Docusate Sodium 1 TAB BID 10/05 514 AC 10/06 PO 0838 Results Last 24 Hours of Lab Results: Laboratory Tests 10/06 10/06 10/06 0640 0600 0600 Chemistry Sodium (137 - 145 mmol/L) 136 L Potassium (3.5 - 5.1 mmol/L) 4.3 Chloride (98 - 107 mmol/L) 100 Carbon Dioxide (22 - 30 mmol/L) 27 Anion Gap (5 - 16) 9 BUN (9 - 20 mg/dL) 16 Creatinine (0.7 - 1.2 mg/dL) 0.7 Estimated GFR (>60 ml/min) > 60 BUN/Creatinine Ratio (7 - 25 %) 22.9 Carcinoembryonic Ag Pending Cancelled Hematology CBC w Diff NO MAN DIFF REQ WBC (4.8 - 10.8 /CUMM) 10.6 RBC (4.70 - 6.10 /CUMM) 4.53 L Hgb (14.0 - 18.0 G/DL) 13.2 L Hct (42 - 52 %) 40.0 L MCV (80.0 - 94.0 FL) 88.2 MCH (27.0 - 31.0 PG) 29.2 RDW (11.5 - 14.5 %) 13.4 Plt Count (130 - 400 /CUMM) 313 MPV (7.4 - 10.4 FL) 8.3 Gran % (42.2 - 75.2 %) 79.9 H Lymphocytes % (20.5 - 51.1 %) 9.4 L Monocytes % (1.7 - 9.3 %) 9.7 H Eosinophils % (0 - 5 %) 0.9 Basophils % (0.0 - 2.0 %) 0.1 Absolute Granulocytes (1.4 - 6.5 /CUMM) 8.5 H Absolute Lymphocytes (1.2 - 3.4 /CUMM) 1.0 L Absolute Monocytes (0.10 - 0.60 /CUMM) 1.0 H Absolute Eosinophils (0.0 - 0.7 /CUMM) 0.1 Absolute Basophils (0.0 - 0.2 /CUMM) 0 PUBS MCHC (33.0 - 37.0 G/DL) 33.1 Recent Imaging Studies: MRI Brain 10/05/2016 IMPRESSION: 1. There are no acute bleeds or infarcts. 2. There are no masses or areas of abnormal enhancement. 3. There are changes consistent with mild diffuse volume loss and there are sequelae of chronic microvascular ischemic disease. Assessment/Plan Assessment/Recommendations: Mr. Flores is a 76-year-old male without significant history of medical issue who presented to the ED after noted to have pleural effusion by his PCP. Thoracentesis revealed pleural effusion with non-small cell carcinoma favoring adenocarcinoma. CT imaging demonstrated a right upper lobe medially abutting to the superior mediastinum measuring 2.0 x 1.3 cm in oblique axial dimensions. This suggest his primary is likely lung origin and would be M1a disease. He should have PET/CT scan done as an outpatient. MRI brain is negative. Pleural fluid per pathology has a sizable amount for cell block. I have asked pathology to send it for further review and testing for PD-L1, EGFR, ALK, ROS1. Molecular markers will be useful to treatment plans. Pulmonary and thoracic are seeing patient to determine optimal local management (PleuRx?). Recommendations: 1. PET/CT body 2. Pathology pending for review to confirm adenocarcinoma vs squamous and molecular testing 3. Pending CEA 4. Follow up as outpatient, patient is considering [facility] ([facility] ) Please call [phone] with any questions. Problem List: 1. Carcinoma 2. Dyspnea 3. Pleural effusion
[2016-10-06 14:23] VITALS: BP 120/80
[2016-10-06 22:19] VITALS: BP 140/90
[2016-10-07 07:09] VITALS: BP 120/88
--- NOTE | 2016-10-07 07:58 | PN- Housestaff ---
See Addendum Subjective Follow-up For: Right pleural effusion Carcinoma, stage M1a Subjective: Patient seen and examined at bedside this AM. He reports he feels well except for occasional cough that results in right chest wall tenderness at site of chest tube insertion. He reports the rozerem is helping him sleep and he has had 2 bowel movements this AM. He denies fever, chills, chest pain. Review of Systems Constitutional: Denies: chills, fever, malaise, weakness. EENTM: Denies: blurred vision, visual changes, hearing changes, nasal congestion, throat pain. Cardiovascular: Denies: chest pain, palpitations, peripheral edema. Respiratory: Reports: cough. Denies: short of breath. Gastrointestinal: Denies: abdominal pain, bloating, constipation, diarrhea. Genitourinary: Denies: hematuria. Musculoskeletal: Reports: muscle pain (Right chest wall). Denies: back pain. Skin: Denies: change in skin color, change in hair/nails. Neurological/Psychological: Denies: confusion, headache. Hematologic/Endocrine: Denies: bruising, bleeding. Immunologic/Allergic: Denies: splenectomy. Objective Last 24 Hrs of Vital Signs/I&O Vital Signs Date Time Temp Pulse Resp B/P Pulse O2 O2 Flow FiO2 Ox Delivery Rate 10/07 0709 98.1 74 20 120/88 94 10/06 2219 98.1 78 20 140/90 96 Room Air 10/06 1423 99.0 85 20 120/80 92 Intake & Output 10/07 1600 10/07 0800 10/07 0000 Intake Total 250 250 Output Total 80 100 Balance 170 150 Intake, IV 10 10 Intake, Oral 240 240 Output, Chest 80 100 Tube Drainage Physical Exam General Appearance: Alert, Oriented X3, Cooperative, No Acute Distress Skin: No Significant Lesion, No signs of erythema/infection around site of insertion of chest tube. HEENT: Atraumatic, Mucous Membr. moist/pink Neck: Supple, No JVD Lymphatic: Cervical nl Cardiovascular: Regular Rate, Normal S1, Normal S2 Lungs: Clear to Auscultation, Normal Air Movement Abdomen: Normal Bowel Sounds, Soft, No Tenderness Neurological: Normal Gait, Normal Speech, Strength at 5/5 X4 Ext, Normal Tone Extremities: No Clubbing, No Cyanosis Vascular: Pulses Symmetrical Current Medications: Current Medications Sig/Ezequiel Start time Last Medication Dose Route Stop Time Status Admin Acetaminophen 650 MG Q6P PRN 10/02 2029 AC 10/04 PO 0134 Benzonatate 100 MG TID 10/04 2014 AC 10/07 PO 0945 Heparin Sodium 5,000 UNIT Q8 10/04 1230 AC 10/07 (Porcine) SC 0435 Ibuprofen 600 MG Q6P PRN 10/02 2029 AC 10/05 PO 2028 Oxycodone HCl 5 MG Q4 HRS NEEDED PRN 10/03 191 AC 10/06 PO 191 Polyethylene Glycol 17 GM DAILY 10/05 0515 AC 10/06 PO 0838 Ramelteon 8 MG AT BEDTIME 10/02 220 AC 10/06 PO 2140 Senna/Docusate Sodium 1 TAB BID 10/05 514 AC 10/06 PO 0838 Last 24 Hrs of Lab/Tio Results Last 24 Hrs of Labs/Mics: Laboratory Tests 10/07/16 0640: Anion Gap 8, Estimated GFR > 60, BUN/Creatinine Ratio 18.9, CBC w Diff NO MAN DIFF REQ, RBC 4.55 L, MCV 88.4, MCH 29.5, RDW 13.3, MPV 8.3, Gran % 73.2, Lymphocytes % 14.3 L, Monocytes % 10.2 H, Eosinophils % 1.9, Basophils % 0.4, Absolute Granulocytes 7.5 H, Absolute Lymphocytes 1.5, Absolute Monocytes 1.0 H, Absolute Eosinophils 0.2, Absolute Basophils 0, PUBS MCHC 33.3 Orders Radiology Findings: EXAMINATION: XR PORTABLE CHEST CLINICAL INFORMATION: Pneumothorax with tube in place. Shortness of breath. COMPARISON: Multiple prior examinations most recent x-ray and chest CT 10/04/2016. TECHNIQUE: Portable view of the chest was obtained. FINDINGS: A right pleural drainage catheter projects over the region of the right costophrenic angle unchanged. A small amount of air is noted in the adjacent chest wall\E\soft tissues. There is persistent small pneumothorax on the right with the visceral pleural line noted the 3.5 cm caudal to the apex of the right hemithorax and at the level of the posterior right fourth. There is persistent bibasilar opacities compatible with bibasilar atelectasis. I do not appreciate definite pleural effusion. The cardiac silhouette mediastinum and pulmonary vascularity are normal. IMPRESSION: Stable appearance of the chest with the right drainage catheter in place and stable pneumothorax. Stable bibasilar opacities most likely atelectasis. Assessment/Plan Assessment: Mr. Flores is a pleasant 76 year old male with no significant PMH on no daily medications other than vitamin D who was sent to [facility] by his PCP after workup for dyspnea found that the patient had a moderate right pleural effusion. Patient reported mild dyspnea, worse with exertion and progressing over the last month. He also endorses occasional cough but was otherwise without symptoms. In the ED: Vital signs showed T 98.2, HR 87, RR 18, BP 148/92 and O2 saturation of 94% on RA. Labs showed mild normocytic anemia but were otherwise unremarkable. Chest CT showed moderate to large right pleural effusion with right lower lobe compressive atelectasis. The following is the current management on the general medicine floor: 1. Right pleural effusion, carcinoma * Supplemental O2 and TRC nebs as needed, ACS ruled out with troponin negative x 2 * Patient had horacentesis that removed about 2 L and this was sent for cytology , culture, protein, pH, LDH etc and AFB * Patient became hypotensive to 78 systolic and was mildly symptomatic with lethargy after the procedure. Post-procedure CXR showed a PTX. Patient was transferred to ICU for close monitoring and has since been sent to the floor for continued care. * Pleural fluid negative for AFB and cytology suggestive of carcinoma. Awaiting final pathology to determine appropriate therapy. * Oncology consult appreciated with Dr. Beckwith, suggested whole body CT/PET and obtaining CEA (CEA pending). Will call pathology to discuss if sample size is adequate and potential need for more biopsy. Dr. Beckwith stages disease at M1a stage. * Patient's chest tube continues to be on suction, patient will have clamping trial done on Sunday for 2 hours with repeat imaging afterwards. If no worsening of PTX of that time, IR will remove chest tube and patient will likely need Pleurx catheter at that time. * Pulm consult with Dr. Doran appreciated * Appreciate surgical recommendations, no current thoracic surgical issue. * Tessalon caps for cough * Pain management as below 2. Influenza vaccination * Patient received flu shot on 10/03 3. Pain * Roxicodone 5 mg Q6h for severe pain * Motrin 600 mg Q6P for moderate pain * Tylenol 650 mg Q6P for mild pain 4. Sleep * Rozerem 8 mg PO at bedtime 5. Hyperkalemia * Patient noted to have a K of 5.2 this AM * Will recheck at 11 am FULL CODE DVTP: Alps Diet: Regular Mild-severe pain pathways Problem List: 1. Pleural effusion 2. Dyspnea 3. Carcinoma Pain Ratin Pain Location: Right chest wall Pain Goal: Pain 4 or less Pain Plan: Roxicodone for severe pain, motrin for moderate pain, tylenol for mild pain. Tomorrow's Labs & Rationales: CBC (monitor H&H with minimal bloody fluid drainage from chest tube), BEP ( monitor electrolytes in setting of hyperkalemia)
[2016-10-07 08:28] LABS: ABSOLUTE BASOPHIL COUNT 0 /CUMM (0.0-0.2); ABSOLUTE EOSINOPHIL COUNT 0.2 /CUMM (0.0-0.7); ABSOLUTE GRANULOCYTE CT 7.5 /CUMM (1.4-6.5); ABSOLUTE LYMPH COUNT 1.5 /CUMM (1.2-3.4); BASOPHIL % 0.4 % (0.0-2.0); EOSINOPHIL % 1.9 % (0-5); GRANULOCYTE % 73.2 % (42.2-75.2); HEMATOCRIT 40.3 % (42-52); MEAN CORPUSCULAR HGB 29.5 PG (27.0-31.0); MEAN CORPUSCULAR HGB CONC 33.3 G/DL (33.0-37.0); MEAN CORPUSCULAR VOLUME 88.4 FL (80.0-94.0); MEAN PLATELET VOLUME 8.3 FL (7.4-10.4); PLATELET COUNT 338 /CUMM (130-400); RBC DISTRIBUTION WIDTH 13.3 % (11.5-14.5); RED BLOOD CELL CT 4.55 /CUMM (4.70-6.10); WHITE BLOOD CELL COUNT 10.3 /CUMM (4.8-10.8)
--- NOTE | 2016-10-07 11:03 | PN- Pulmonary ---
Subjective HPI/Critical Care Issues: She's resting comfortably chest tube continues to drain Objective Current Medications: Current Medications Sig/Ezequiel Start time Last Medication Dose Route Stop Time Status Admin Acetaminophen 650 MG Q6P PRN 10/02 2029 AC 10/04 PO 013 Benzonatate 100 MG TID 10/04 2014 AC 10/07 PO 0945 Heparin Sodium 5,000 UNIT Q8 10/04 1230 AC 10/07 (Porcine) SC 0435 Ibuprofen 600 MG Q6P PRN 10/02 2029 AC 10/05 PO 2029 Oxycodone HCl 5 MG Q4 HRS NEEDED PRN 10/03 191 AC 10/06 PO 1910 Polyethylene Glycol 17 GM DAILY 10/05 0515 AC 10/06 PO 0838 Ramelteon 8 MG AT BEDTIME 10/02 2199 AC 10/06 PO 2140 Senna/Docusate Sodium 1 TAB BID 10/05 0515 AC 10/06 PO 0838 Vital Signs & I&O Last 24 Hrs of Vitals and I&O: Vital Signs Date Time Temp Pulse Resp B/P Pulse O2 O2 Flow FiO2 Ox Delivery Rate 10/07 0709 98.1 74 20 120/88 94 10/06 2219 98.1 78 20 140/90 96 Room Air 10/06 1423 99.0 85 20 120/80 92 Intake & Output 10/07 1600 10/07 0800 10/07 0000 Intake Total 250 250 Output Total 80 100 Balance 170 150 Intake, IV 10 10 Intake, Oral 240 240 Output, Chest 80 100 Tube Drainage Oxygen saturation 94% exam of his chest shows. Better air entry over the right chest Impression/Plan Impression/Plan Impression/Plan: 76-year-old gentleman with stage IV lung cancer and malignant pleural effusion. Recommendations: Given the presence of pleural malignant implants continued pleural fluid drainage is to be expected. Once his tube is removed to a likely reaccumulate and will require a Pleurx catheter. Remainder of his workup to be done as an outpatient. No further pulmonary suggestions await decision regarding placement of Pleurx catheter
[2016-10-07 14:39] VITALS: BP 122/82
[2016-10-07 21:47] VITALS: BP 120/70
[2016-10-08 06:46] VITALS: BP 120/70
[2016-10-08 07:59] LABS: ABSOLUTE BASOPHIL COUNT 0.1 /CUMM (0.0-0.2); ABSOLUTE EOSINOPHIL COUNT 0.3 /CUMM (0.0-0.7); ABSOLUTE GRANULOCYTE CT 6.3 /CUMM (1.4-6.5); ABSOLUTE LYMPH COUNT 1.8 /CUMM (1.2-3.4); BASOPHIL % 0.6 % (0.0-2.0); EOSINOPHIL % 2.9 % (0-5); GRANULOCYTE % 66.7 % (42.2-75.2); HEMATOCRIT 39.1 % (42-52); MEAN CORPUSCULAR HGB 29.5 PG (27.0-31.0); MEAN CORPUSCULAR HGB CONC 33.3 G/DL (33.0-37.0); MEAN CORPUSCULAR VOLUME 88.3 FL (80.0-94.0); MEAN PLATELET VOLUME 7.9 FL (7.4-10.4); PLATELET COUNT 352 /CUMM (130-400); RBC DISTRIBUTION WIDTH 13.5 % (11.5-14.5); RED BLOOD CELL CT 4.42 /CUMM (4.70-6.10); WHITE BLOOD CELL COUNT 9.4 /CUMM (4.8-10.8)
--- NOTE | 2016-10-08 08:54 | PN- Housestaff ---
ROSAS NAM,FRANCIS 10/08/16 0853: Subjective Follow-up For: Right pleural effusion Carcinoma, stage M1a Subjective: Patient seen and examined at bedside. No events reported overnight. He has no new complaints except for the pain around the chest tube insertion site with coughing. Pain is under control with the current pain regimen. He continues to cough productive of white sputum occasionally. Denies any chest pain dyspnea palpitations abdominal pain nausea vomiting constipation diarrhea. Awaiting clamp trial scheduled for tomorrow. Review of Systems Constitutional: Reports: see HPI. Objective Last 24 Hrs of Vital Signs/I&O Vital Signs Date Time Temp Pulse Resp B/P Pulse O2 O2 Flow FiO2 Ox Delivery Rate 10/08 0646 97.4 72 19 120/70 91 Room Air 10/07 2147 97.9 79 20 120/70 94 10/07 1439 97.1 82 20 122/82 93 Intake & Output 10/08 1600 10/08 0800 10/08 0000 Intake Total 100 Output Total 0 Balance 100 0 Intake, Oral 100 Output, Chest 0 Tube Drainage Physical Exam General Appearance: Alert, Oriented X3, Cooperative, No Acute Distress Other Physical Findings: Skin: No Significant Lesion, No signs of erythema/infection around site of insertion of chest tube. HEENT: Atraumatic, Mucous Membr. moist/pink Neck: Supple, No JVD Lymphatic: Cervical nl Cardiovascular: Regular Rate, Normal S1, Normal S2 Lungs: Clear to Auscultation, Normal Air Movement Abdomen: Normal Bowel Sounds, Soft, No Tenderness Neurological: Normal Gait, Normal Speech, Strength at 5/5 X4 Ext, Normal Tone Extremities: No Clubbing, No Cyanosis Vascular: Pulses Symmetrical Current Medications: Current Medications: Current Medications Sig/Ezequiel Start time Last Medication Dose Route Stop Time Status Admin Acetaminophen 650 MG Q6P PRN 10/02 2029 AC 10/04 PO 0134 Benzonatate 100 MG TID 10/04 2014 AC 10/08 PO 1029 Heparin Sodium 5,000 UNIT Q8 10/04 1230 AC 10/08 (Porcine) SC 0649 Ibuprofen 600 MG Q6P PRN 10/02 2029 AC 10/05 PO 2028 Melatonin 5 MG ONCE ONE 10/07 2044 DC 10/07 PO 10/07 Oxycodone HCl 5 MG Q4 HRS NEEDED PRN 10/03 1914 AC 10/07 PO 2041 Polyethylene Glycol 17 GM DAILY 10/05 514 AC 10/06 PO 837 Ramelteon 8 MG AT BEDTIME 10/02 2199 AC 10/07 PO 2041 Senna/Docusate Sodium 1 TAB BID 10/05 514 AC 10/06 PO 837 Last 24 Hrs of Lab/Tio Results Last 24 Hrs of Labs/Mics: Laboratory Tests 10/08/16 0700: Anion Gap 8, Estimated GFR > 60, BUN/Creatinine Ratio 21.1, CBC w Diff NO MAN DIFF REQ, RBC 4.42 L, MCV 88.3, MCH 29.5, RDW 13.5, MPV 7.9, Gran % 66.7, Lymphocytes % 18.9 L, Monocytes % 10.9 H, Eosinophils % 2.9, Basophils % 0.6, Absolute Granulocytes 6.3, Absolute Lymphocytes 1.8, Absolute Monocytes 1.0 H, Absolute Eosinophils 0.3, Absolute Basophils 0.1, PUBS MCHC 33.3 Assessment/Plan Assessment: Mr. Flores is a pleasant 76 year old male with no significant PMH on no daily medications other than vitamin D who was sent to [facility] by his PCP after workup for dyspnea found that the patient had a moderate right pleural effusion. Patient reported mild dyspnea, worse with exertion and progressing over the last month. He also endorses occasional cough but was otherwise without symptoms. In the ED: Vital signs showed T 98.2, HR 87, RR 18, BP 148/92 and O2 saturation of 94% on RA. Labs showed mild normocytic anemia but were otherwise unremarkable. Chest CT showed moderate to large right pleural effusion with right lower lobe compressive atelectasis. The following is the current management on the general medicine floor: 1. Right pleural effusion, carcinoma * Supplemental O2 and TRC nebs as needed, ACS ruled out with troponin negative x 2 * Patient had horacentesis that removed about 2 L and this was sent for cytology , culture, protein, pH, LDH etc and AFB * Patient became hypotensive to 78 systolic and was mildly symptomatic with lethargy after the procedure. Post-procedure CXR showed a PTX. Patient was transferred to ICU for close monitoring and has since been sent to the floor for continued care. * Pleural fluid negative for AFB and cytology suggestive of carcinoma. Awaiting final pathology to determine appropriate therapy. * Oncology consult appreciated with Dr. Beckwith, suggested whole body CT/PET and obtaining CEA (CEA pending). Will call pathology to discuss if sample size is adequate and potential need for more biopsy. Dr. Beckwith stages disease at M1a stage. * Patient's chest tube continues to be on suction, patient will have clamping trial done on Sunday (confirmed by IR on 10/07 per patient and nursing staff) for 2 hours with repeat imaging afterwards. If no worsening of PTX of that time, IR will remove chest tube and patient will likely need Pleurx catheter at that time. * Pulm consult with Dr. Doran appreciated * Appreciate surgical recommendations, no current thoracic surgical issue. * Tessalon caps for cough * Pain management as below 2. Influenza vaccination * Patient received flu shot on 10/03 3. Pain * Roxicodone 5 mg Q6h for severe pain * Motrin 600 mg Q6P for moderate pain * Tylenol 650 mg Q6P for mild pain 4. Sleep * Rozerem 8 mg PO at bedtime 5. Hyperkalemia * Patient noted to have a K of 5.2 this AM * Will recheck at 11 am FULL CODE DVTP: Alps Diet: Regular Mild-severe pain pathways Problem List: 1. Pleural effusion 2. Dyspnea 3. Carcinoma Pain Ratin Pain Location: Chest tube insertion site Pain Goal: Remain pain free Pain Plan: Roxicodone for severe pain, motrin for moderate pain, tylenol for mild pain. 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 Does not offer any complaints. Will have the Pleurx catheter placed on Sunday.
--- NOTE | 2016-10-08 12:27 | Patient Discharge Instructions ---
Discharge Instructions General Discharge Information You were seen/treated for: Pleural effusion requiring chest tube placement. Lung carcinoma. Special Instructions: Please follow up with your PCP within 1 week of discharge. Please follow up with Dr. Skip Beckwith for continued care and management of your recently diagnosed lung carcinoma. Please have an outpatient PET scan and follow up for results with Dr. Valdivia. His number is . If you would like to schedule an appointment in [place], the following is the information: [facility], can call [phone] Mtz can call [phone] for appointment. Please follow up with Dr. Doran as needed for management of any pulmonary concerns. Please take all medications as directed. Please take a stool softener while on pain medications. Diet Recommended Diet: Heart Healthy Activity Activity Self Limited: Yes Acute Coronary Syndrome Inclusion Criteria At DC or during hospital stay patient has or had the following: ACS DIAGNOSIS No Discharge Core Measures Meds if any: Prescribed or Continued at Discharge Meds if any: NOT Prescribed or Continued at Discharge Congestive Heart Failure Inclusion Criteria At DC or during hospital stay patient has or had the following: CHF DIAGNOSIS No Discharge Core Measures Meds if any: Prescribed or Continued at Discharge Meds if any: NOT Prescribed or Continued at Discharge Cerebrovascular accident Inclusion Criteria At DC or during hospital stay patient has or had the following: CVA/TIA Diagnosis No Discharge Core Measures Meds if any: Prescribed or Continued at Discharge Meds if any: NOT Prescribed or Continued at Discharge Venous thromboembolism Inclusion Criteria VTE Diagnosis No VTE Type NONE VTE Confirmed by (Test) NONE Discharge Core Measures - Per Current guidelines, there needs to be overlap - treatment for the first 5 days of Warfarin therapy. - If discharged on Warfarin prior to 5 days of - overlap therapy, the patient will need to be - assessed for post discharge needs including - *Post discharge parental anticoagulation - *Warfarin and/or parental anticoagulation education - *Follow up date to check INR post discharge At least 5 days overlap therapy as Inpatient No Meds if any: Prescribed or Continued at Discharge Note: Overlap Therapy is Warfarin and Anticoagulant Meds if any: NOT Prescribed or Continued at Discharge
--- NOTE | 2016-10-08 12:47 | PN- Pulmonary ---
Subjective HPI/Critical Care Issues: Patient feels well without complaint Objective Current Medications: Current Medications Sig/Ezequiel Start time Last Medication Dose Route Stop Time Status Admin Acetaminophen 650 MG Q6P PRN 10/02 2029 AC 10/04 PO 0134 Benzonatate 100 MG TID 10/04 2014 AC 10/08 PO 1029 Heparin Sodium 5,000 UNIT Q8 10/04 1230 AC 10/08 (Porcine) SC 0649 Ibuprofen 600 MG Q6P PRN 10/02 2029 AC 10/05 PO 2028 Melatonin 5 MG ONCE ONE 10/07 2044 DC 10/07 PO 10/07 Oxycodone HCl 5 MG Q4 HRS NEEDED PRN 10/03 1915 AC 10/07 PO 204 Polyethylene Glycol 17 GM DAILY 10/05 05 AC 10/06 PO 0838 Ramelteon 8 MG AT BEDTIME 10/02 220 AC 10/07 PO 2041 Senna/Docusate Sodium 1 TAB BID 10/05 514 AC 10/06 PO 0838 Vital Signs & I&O Last 24 Hrs of Vitals and I&O: Vital Signs Date Time Temp Pulse Resp B/P Pulse O2 O2 Flow FiO2 Ox Delivery Rate 10/08 0646 97.4 72 19 120/70 91 Room Air 10/07 2147 97.9 79 20 120/70 94 10/07 1439 97.1 82 20 122/82 93 Intake & Output 10/08 1600 10/08 0800 10/08 0000 Intake Total 100 Output Total 0 Balance 100 0 Intake, Oral 100 Output, Chest 0 Tube Drainage Chest tube continues to drain however volume is reduced Impression/Plan Impression/Plan Impression/Plan: 76-year-old gentleman with stage IV lung cancer and malignant pleural effusion. Recommendations: Given the presence of pleural malignant implants continued pleural fluid drainage is to be expected. Once his tube is removed to a likely reaccumulate and will require a Pleurx catheter. Remainder of his workup to be done as an outpatient. No further pulmonary suggestions await decision regarding placement of Pleurx catheter. Extensive family meeting with his son regarding his current status and possible future decision-making regarding the place of care as well as management of his malignant pleural effusion duration of discussion 20 minutes
[2016-10-08 14:25] VITALS: BP 135/70
--- NOTE | 2016-10-08 15:42 | Discharge Summary ---
Visit Information Visit Dates Admission Date: 10/02/16 Discharge Date: 10/09/16. Hospital Course Course Attending Physician: CHENTE MCCURDY M.D Primary Care Physician: JEFFERSON SANTANA Consulting Request: 1 Consulting Specialty: Hematology/Oncology Consulting Physician: Dr. Romaine Urrutia Reason for Consult: Malignant pleural effusion Consulting Request: 2 Consulting Specialty: Pulmonary Disease Consulting Physician: Dr. Narciso Doran Reason for Consult: Pulmonary effusion Consulting Request: 3 Consulting Specialty: Thoracic/Vascular Surgery Consulting Physician: Dr. King Reason for Consult: Pleural effusion requiring chest tube placement. Hospital Course: Mr. Flores is a pleasant 76 year old male with no significant PMH on no daily medications other than vitamin D who was sent to [place] by his PCP after workup for dyspnea found that the patient had a moderate right pleural effusion. Patient reported mild dyspnea, worse with exertion and progressing over the last month. He also endorsed occasional cough but was otherwise asymptomatic. In the ED: Vital signs showed T 98.2, HR 87, RR 18, BP 148/92 and O2 saturation of 94% on RA. Labs showed mild normocytic anemia but were otherwise unremarkable. Chest CT showed moderate to large right pleural effusion with right lower lobe compressive atelectasis. The following was the management during the patient's stay: 1. Right pleural effusion: Patient was admitted to the general medicine floor after repeat chest imaging while in the ED showedmoderate to large right pleural effusion with right lower lobe compressive atelectasis. He was hemodynamically stable and saturating well on room air and did therefore not require ICU or telemetry monitoring. ACS was ruled out with troponins negative x 2. A pulmonolgy consult with Dr. Doran was placed who suggested thoracentesis ( diagnostic and therapeutic). Thoracentesis occured in the IR suite on 10/03/15 with 2 liters of bloody fluid drained. He became slightly hypotensive to 78 degrees as well as lethargic post-procedure. CXR after drainage showed a pneumothorax. Patient was transferred to the ICU and chest tube was placed to suction. His blood pressure stabilied post-fluid administration. Pleural fluid was sent for cytology, protein, albumin, LDH, pH, WBC, glucose etc. This workup was suggestive of carcinoma. Hematology consult with Dr. Chiquis Urrutia was placed at this time. He suggested pathology showed non-small cell carcinoma favoring adenocarcinoma. A repeat chest CT was performed to investigate for underlying mass and showed a 2.0 x 1.3 cm spiculated mass in the right upper lobe, concerning for neoplasm. Head MRI was performed and showed no areas of abnormal enhancement that would be suggestive of a metastasis. Hematology/oncology discussed options with patient and will continue to follow patient as an outpatient after he obtains a whole body PET scan to search for further metastasis. His chest tube was later removed on 10/09/16 after passing a clamping trial. He was discharged with oxycodone for pain control and close follow up with his PCP and oncology for continued care. Numbers for both [facility] and the [facility] in [place] were provided. 2. Hyperkalemia: Patient had noted hyperkalemia to 5.2 on the morning of . Repeat potassium later that day returned to within normal limits and he required no intervention. 3. Influenza vaccination: Patient received influenza vaccination on 10/03/16. 4. Pain management: Pain was managed with tylenol 650 mg Q6P for mild pain, motrin 600 mg Q6P for moderate pain and roxicodone 5 mg Q6h for severe pain. This along with tessalon pearls for cough managed his pain adequately. 5. Code status: FULL 6. DVT prophylaxis: ALPS Complications: Patient had a chest tube placement on 10/03/16 and the patient developed a pneumothorax after drainage of about 2 L bloody fluid. Patient was hemodynamically unstable with certain positioning (90 degrees upright) prompting a transfer to the ICU. He was subsequently stabilized and chest tube was placed to wall suctioning. He was transferred back to the general medicine floor on after a further uneventful coure in the ICU. Allergies: Coded Allergies: No Known Allergies (10/02/16) Significant Procedures: EXAMINATION: MR BRAIN WITHOUT AND WITH CONTRAST CLINICAL INFORMATION: New cancer cells in pleural effusion. Assess for metastases. COMPARISON: CT scan of the head 04/23/2011. TECHNIQUE: MRI of the brain was obtained using routine sequences before and after the intravenous administration of 7 mL of OptiMARK. FINDINGS: No diffusion abnormalities are identified to suggest an acute or subacute infarct. No mass effect or midline shift is seen. The ventricles and sulci are commensurately prominent consistent with mild diffuse volume loss. There are moderate scattered areas of increased T2 and FLAIR signal in the periventricular and subcortical white matter and in the norma, consistent with sequelae of chronic microvascular ischemic disease. 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 The brainstem and cerebellum are normal. On postcontrast imaging, there is no abnormal parenchymal or leptomeningeal enhancement. No pathologic magnetic susceptibility artifact is identified on the gradient refocused acquisition. The craniovertebral junction, marrow signal, and midline structures are normal. The major intracranial flow-voids at the level of the [place] are preserved. The dural venous sinus flow-voids are maintained. The mastoid air cells are well-aerated. There is mucoperiosteal thickening in the bilateral anterior ethmoid and in the sphenoid sinuses. There is trace fluid in the left maxillary sinus. There has been a left lens extraction. IMPRESSION: 1. There are no acute bleeds or infarcts. 2. There are no masses or areas of abnormal enhancement. 3. There are changes consistent with mild diffuse volume loss and there are sequelae of chronic microvascular ischemic disease. EXAMINATION: CT CHEST WITH CONTRAST CLINICAL INFORMATION: Pleural effusion, shortness of breath. Mass/malignancy. COMPARISON: CT scan of the chest 10/02/2016, and chest x-ray also obtained 10/04/2016. TECHNIQUE: Multidetector volumetric CT imaging of the chest was obtained after the administration of 74 mL of Optiray 320 intravenous contrast without immediate adverse reactions. Axial MIP volume rendering provided. Sagittal and coronal reformatted images were obtained. DLP: 294.02 mGy-cm FINDINGS: DIRECTOR OF RESEARCH AND DEVELOPMENT: A pigtail chest drain is noted at the right base laterally. LUNGS: There is a spiculated mass in the right upper lobe medially abutting to the superior mediastinum which measures 2.0 x 1.3 cm in oblique axial dimensions. There is atelectasis at the right base. There are patchy opacities with air bronchograms at the right base, which may be consistent with consolidation. There are linear areas of opacification in the right middle lobe consistent with atelectasis. MEDIASTINUM: The thyroid gland appears normal. The mediastinum is central. There are atheromatous calcifications of the aorta and great vessels of the neck. There is no mediastinal or hilar lymphadenopathy. There are small mediastinal lymph nodes. The heart is normal in size. There is no pericardial effusion. PLEURA: The large pleural effusion is no longer visualized. There are trace bilateral pleural effusions with adjacent underlying atelectasis. There is a small pneumothorax. A pigtail catheter from the right posterior chest is noted at the right base. AXILLA: There is no axillary lymphadenopathy. There is subcutaneous air in the right chest wall extending laterally and posteriorly, and most prominent at the right lung base. UPPER ABDOMEN: There is an accessory splenule. The adrenal glands are normal in size. OSSEOUS STRUCTURES: There are multilevel degenerative changes in the thoracic spine. There is a sclerotic density in the medial left clavicle, consistent with a bone island. There are degenerative changes at the left shoulder joint. IMPRESSION: 1. There has been interval drainage of the right pleural effusion when compared to prior imaging. A pigtail catheter is noted at the right base posterolaterally. There are trace bilateral pleural effusions. 2. There is a 2.0 x 1.3 cm spiculated mass in the right upper lobe, concerning for neoplasm. This could be further assessed with PET CT scan. 3. There is subcutaneous air around the right chest, and there is a small pneumothorax. Pertinent Lab Results: Pleural fluid: WBC 1778, [id number] total RBCs, 40 glucose, 47 mesothelial cells, total protein 7.5, albumin 4.6, LDH 1934, amylase 61, pH 7.21 Disposition Summary Disposition Principal Diagnosis: Large right pleural effusion with right lower lobe compressive atelectasis. Non-small cell carcinoma favoring adenocarcinoma Additional Diagnosis: Hyperkalemia (5.2) Discharge Disposition: home health services Discharge Instructions General Discharge Information Code Status: Full Code Patient's Diet: Heart healthy diet. Patient's Activity: Self-limited, as tolerated. Follow-Up Instructions/Appts: Please follow up with your PCP within 1 week of discharge. Please follow up with Dr. Skip Beckwith for continued care and management of your recently diagnosed lung carcinoma. Please have an outpatient PET scan and follow up for results with Dr. Valdivia. His number is . If you would like to schedule an appointment in [place], the following is the information: [facility], can call [phone] Mtz can call [phone] for appointment. Please follow up with Dr. Doran as needed for management of any pulmonary concerns. Please take all medications as directed. Please take a stool softener while on pain medications. Medications at Discharge Discharge Medications: Stop taking the following medications: Prednisone (Prednisone) 20 MG TABLET ORAL TWICE DAILY Qty = 10 Continue taking these medications: Albuterol Sulfate (Proair Hfa) 90 MCG HFA.AER.AD 2 Puff Inhale through mouth EVERY 4-6 HOURS NEEDED as needed for RESPIRATORY Qty = 8 Comments: PER PT Cholecalciferol (Vitamin D3) (Vitamin D) (Unknown Strength) CAPSULE Unknown Dose ORAL DAILY Comments: PER PT Start taking the following new medications: Oxycodone HCl (Oxycodone HCl) 5 MG CAPSULE 1 Capsule ORAL THREE TIMES DAILY as needed for MODERATE PAIN Qty = 10 No Refills Copies To: VEELYN HENDRICKSON,JEFFERSON Ozuna; HECTOR NAM,NARCISO Odom; KIMI NAM,ROMAINE Reyes MD Review Statement Documenting Attending: CHENTE MCCURDY M.D Other Findings: I have reviewed the discharge summary.
[2016-10-08 22:11] VITALS: BP 134/90
[2016-10-09 07:01] VITALS: BP 128/80
--- NOTE | 2016-10-09 07:02 | PN- Housestaff ---
See Addendum Subjective Follow-up For: Right pleural effusion Carcinoma Subjective: Patient seen and examined at bedside this AM. He is resting comfortably in bed and is happy his chest tube will be taken out today. He offers no complaints including no fever, chills, chest pain, shortness of breath, abdominal pain. Review of Systems Constitutional: Denies: chills, fever, malaise. EENTM: Denies: blurred vision, visual changes, hearing changes. Cardiovascular: Denies: chest pain, palpitations. Respiratory: Reports: cough (Occasional). Denies: short of breath, sputum production, wheezing. Gastrointestinal: Denies: abdominal pain, constipation, diarrhea. Genitourinary: Denies: dysuria. Musculoskeletal: Denies: back pain, joint pain. Skin: Denies: change in skin color, change in hair/nails. Neurological/Psychological: Denies: confusion, headache, numbness, paresthesia. Hematologic/Endocrine: Denies: bruising, bleeding. Immunologic/Allergic: Denies: splenectomy. Objective Last 24 Hrs of Vital Signs/I&O Vital Signs Date Time Temp Pulse Resp B/P Pulse O2 O2 Flow FiO2 Ox Delivery Rate 10/09 0800 98 10/09 0701 98.2 72 20 128/80 91 Room Air 10/09 0000 92 Room Air 10/08 2211 98.6 69 20 134/90 92 Room Air 10/08 1425 98.0 70 20 135/70 96 Intake & Output 10/09 1600 10/09 0800 10/09 0000 Intake Total 0 Output Total 20 0 Balance -20 0 Intake, IV 0 Intake, Oral 0 Number 0 Bowel Movements Output, Chest 20 0 Tube Drainage Physical Exam General Appearance: Alert, Oriented X3, Cooperative, No Acute Distress Skin: No Significant Lesion HEENT: Atraumatic, Mucous Membr. moist/pink Neck: Supple, No JVD, No thryomegaly Lymphatic: Cervical nl Cardiovascular: Regular Rate, Normal S1, Normal S2 Lungs: Clear to Auscultation, Normal Air Movement Abdomen: Normal Bowel Sounds, Soft, No Tenderness Neurological: Normal Gait, Normal Speech, Normal Tone Extremities: No Clubbing, No Cyanosis, No Edema Vascular: Pulses Symmetrical Current Medications: Current Medications Sig/Ezequiel Start time Last Medication Dose Route Stop Time Status Admin Acetaminophen 650 MG Q6P PRN 012029 AC 10/04 PO 0134 Benzonatate 100 MG TID 10/04 2014 AC 10/08 PO 214 Heparin Sodium 5,000 UNIT Q8 10/04 1230 AC 10/09 (Porcine) SC 0623 Ibuprofen 600 MG Q6P PRN 10/02 2029 AC 10/05 PO 202 Melatonin 5 MG ONCE ONE 10/08 2130 DC 10/08 PO 10/08 2130 2220 Oxycodone HCl 5 MG Q4 HRS NEEDED PRN 10/03 1915 AC 10/09 PO 1043 Polyethylene Glycol 17 GM DAILY 10/05 05 AC 10/06 PO 0838 Ramelteon 8 MG AT BEDTIME 10/02 220 AC 10/08 PO 2125 Senna/Docusate Sodium 1 TAB BID 10/05 514 10/06 PO 0838 Orders Radiology Findings: EXAMINATION: XR PORTABLE CHEST CLINICAL INFORMATION: Follow-up pneumothorax. COMPARISON: CXR from 10/05/2016 TECHNIQUE: Portable view of the chest was obtained. FINDINGS: Compared to 10/05/2016, the pneumothorax has resolved. The right costophrenic sulcus is slightly blunted, suggestive of trace residual pleural effusion. There is discoid atelectasis adjacent to the minor fissure. The pleural drainage catheter projects over the region of the right lateral costophrenic sulcus. Cardiomediastinal silhouette has stable size and configuration. There is no acute pulmonary edema or other significant interval change. IMPRESSION: The pleural drainage catheter remains positioned in the base of the right hemithorax. The pneumothorax has resolved. Miscellaneous Findings: EXAMINATION: MR BRAIN WITHOUT AND WITH CONTRAST CLINICAL INFORMATION: New cancer cells in pleural effusion. Assess for metastases. COMPARISON: CT scan of the head 04/23/2011. TECHNIQUE: MRI of the brain was obtained using routine sequences before and after the intravenous administration of 7 mL of OptiMARK. FINDINGS: No diffusion abnormalities are identified to suggest an acute or subacute infarct. No mass effect or midline shift is seen. The ventricles and sulci are commensurately prominent consistent with mild diffuse volume loss. There are moderate scattered areas of increased T2 and FLAIR signal in the periventricular and subcortical white matter and in the norma, consistent with sequelae of chronic microvascular ischemic disease. 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 The brainstem and cerebellum are normal. On postcontrast imaging, there is no abnormal parenchymal or leptomeningeal enhancement. No pathologic magnetic susceptibility artifact is identified on the gradient refocused acquisition. The craniovertebral junction, marrow signal, and midline structures are normal. The major intracranial flow-voids at the level of the [place] are preserved. The dural venous sinus flow-voids are maintained. The mastoid air cells are well-aerated. There is mucoperiosteal thickening in the bilateral anterior ethmoid and in the sphenoid sinuses. There is trace fluid in the left maxillary sinus. There has been a left lens extraction. IMPRESSION: 1. There are no acute bleeds or infarcts. 2. There are no masses or areas of abnormal enhancement. 3. There are changes consistent with mild diffuse volume loss and there are sequelae of chronic microvascular ischemic disease. EXAMINATION: CT CHEST WITH CONTRAST CLINICAL INFORMATION: Pleural effusion, shortness of breath. Mass/malignancy. COMPARISON: CT scan of the chest 10/02/2016, and chest x-ray also obtained 10/04/2016. TECHNIQUE: Multidetector volumetric CT imaging of the chest was obtained after the administration of 74 mL of Optiray 320 intravenous contrast without immediate adverse reactions. Axial MIP volume rendering provided. Sagittal and coronal reformatted images were obtained. DLP: 294.02 mGy-cm FINDINGS: STRING TOP SEALER: A pigtail chest drain is noted at the right base laterally. LUNGS: There is a spiculated mass in the right upper lobe medially abutting to the superior mediastinum which measures 2.0 x 1.3 cm in oblique axial dimensions. There is atelectasis at the right base. There are patchy opacities with air bronchograms at the right base, which may be consistent with consolidation. There are linear areas of opacification in the right middle lobe consistent with atelectasis. MEDIASTINUM: The thyroid gland appears normal. The mediastinum is central. There are atheromatous calcifications of the aorta and great vessels of the neck. There is no mediastinal or hilar lymphadenopathy. There are small mediastinal lymph nodes. The heart is normal in size. There is no pericardial effusion. PLEURA: The large pleural effusion is no longer visualized. There are trace bilateral pleural effusions with adjacent underlying atelectasis. There is a small pneumothorax. A pigtail catheter from the right posterior chest is noted at the right base. AXILLA: There is no axillary lymphadenopathy. There is subcutaneous air in the right chest wall extending laterally and posteriorly, and most prominent at the right lung base. UPPER ABDOMEN: There is an accessory splenule. The adrenal glands are normal in size. OSSEOUS STRUCTURES: There are multilevel degenerative changes in the thoracic spine. There is a sclerotic density in the medial left clavicle, consistent with a bone island. There are degenerative changes at the left shoulder joint. IMPRESSION: 1. There has been interval drainage of the right pleural effusion when compared to prior imaging. A pigtail catheter is noted at the right base posterolaterally. There are trace bilateral pleural effusions. 2. There is a 2.0 x 1.3 cm spiculated mass in the right upper lobe, concerning for neoplasm. This could be further assessed with PET CT scan. 3. There is subcutaneous air around the right chest, and there is a small pneumothorax. Assessment/Plan Assessment: Mr. Flores is a pleasant 76 year old male with no significant PMH on no daily medications other than vitamin D who was sent to [place] [facility] by his PCP after workup for dyspnea found that the patient had a moderate right pleural effusion. Patient reported mild dyspnea, worse with exertion and progressing over the last month. He also endorses occasional cough but was otherwise without symptoms. In the ED: Vital signs showed T 98.2, HR 87, RR 18, BP 148/92 and O2 saturation of 94% on RA. Labs showed mild normocytic anemia but were otherwise unremarkable. Chest CT showed moderate to large right pleural effusion with right lower lobe compressive atelectasis. The following is the current management on the general medicine floor: 1. Right pleural effusion, carcinoma * Supplemental O2 and TRC nebs as needed, ACS ruled out with troponin negative x 2 * Patient had horacentesis that removed about 2 L and this was sent for cytology , culture, protein, pH, LDH etc and AFB * Patient became hypotensive to 78 systolic and was mildly symptomatic with lethargy after the procedure. Post-procedure CXR showed a PTX. Patient was transferred to ICU for close monitoring and has since been sent to the floor for continued care. * Pleural fluid negative for AFB and cytology suggestive of carcinoma. Awaiting final pathology to determine appropriate therapy. * Oncology consult appreciated with Dr. Beckwith, suggested whole body CT/PET and obtaining CEA which was 0.6 (evidence of non-smoker). Dr. Beckwith stages disease at M1a stage. * Clamping trial done today and follow up CXR showed minimal pleural fluid and no worsening of PTX. Chest tube removed by IR and no pleurx catheter placed as he had minimal pleural fluid accumulation after clamping trial. * Patient stable for discharge today * Pulm consult with Dr. Doran appreciated * Appreciate surgical recommendations, no current thoracic surgical issue. * Tessalon caps for cough * Pain management as below 2. Influenza vaccination * Patient received flu shot on 10/03 3. Pain * Roxicodone 5 mg Q6h for severe pain * Motrin 600 mg Q6P for moderate pain * Tylenol 650 mg Q6P for mild pain 4. Sleep * Rozerem 8 mg PO at bedtime 5. Hyperkalemia * Patient noted to have a K of 5.2 10/07/16 * Hyperkalemia resolved, last 2 K levels WNL FULL CODE DVTP: Alps Diet: Regular Mild-severe pain pathways Problem List: 1. Dyspnea 2. Carcinoma 3. Pleural effusion Pain Ratin Pain Location: n/a Pain Goal: Remain pain free Pain Plan: Roxicodone as needed for mild pain. Tomorrow's Labs & Rationales: Discharge today. Consulting Request: Consulting Specialty: Thoracic/Vascular Surgery Consulting Physician: Dr. King Reason for Consult: Pleural effusion requiring chest tube placement.
--- NOTE | 2016-10-09 10:22 | PN- Oncology ---
Subjective Subjective: He feels well. He has some chest pain in the chest tube insertion site. Review of Systems: Constitutional: Denies: chills, fever. Cardiovascular: Reports: chest pain. Respiratory: Reports: short of breath. Gastrointestinal: Denies: abdominal pain. Neurological/Psychological: Reports: anxiety. All Other Systems: Reviewed and Negative Objective Vital Signs and I&Os Vital Signs Date Time Temp Pulse Resp B/P Pulse O2 O2 Flow FiO2 Ox Delivery Rate 10/09 0701 98.2 72 20 128/80 91 Room Air 10/08 2211 98.6 69 20 134/90 92 Room Air 10/08 1425 98.0 70 20 135/70 96 Intake & Output 10/09 1600 10/09 0800 10/09 0000 10/08 1600 10/08 0800 10/08 0000 Intake Total 800 100 Output Total 0 0 0 Balance 0 800 100 0 Intake, Oral 800 100 Output, Chest 0 0 0 Tube Drainage Physical Exam General Appearance: well developed/nourished, no apparent distress, comfortable Head: atraumatic Respiratory: normal breath sounds, decreased breath sounds, tender to palpation in the right posterior chest Cardiovascular: regular rate/rhythm Abdomen: normal bowel sounds, soft, non-tender Extremities: normal inspection Neurologic/Psychiatric: awake, alert, oriented x 3 Current Medications: Current Medications Sig/Ezequiel Start time Last Medication Dose Route Stop Time Status Admin Acetaminophen 650 MG Q6P PRN 10/02 2029 AC 10/04 PO 013 Benzonatate 100 MG TID 10/04 2014 AC 10/08 PO 214 Heparin Sodium 5,000 UNIT Q8 10/04 1230 AC 10/09 (Porcine) SC 0623 Ibuprofen 600 MG Q6P PRN 10/02 2029 AC 10/05 PO 202 Melatonin 5 MG ONCE ONE 10/08 213 DC 10/08 PO 10/08 2130 2220 Oxycodone HCl 5 MG Q4 HRS NEEDED PRN 10/03 191 AC 10/08 PO 212 Polyethylene Glycol 17 GM DAILY 10/05 05 AC 10/06 PO 0838 Ramelteon 8 MG AT BEDTIME 10/02 2199 AC 10/08 PO 2124 Senna/Docusate Sodium 1 TAB BID 10/05 05 AC 10/06 PO 0838 Assessment/Plan Assessment/Recommendations: Mr. Flores is a 76-year-old male without significant history of medical issue who presented to the ED after noted to have pleural effusion by his PCP. Thoracentesis revealed pleural effusion with non-small cell carcinoma favoring adenocarcinoma. CT imaging demonstrated a right upper lobe medially abutting to the superior mediastinum measuring 2.0 x 1.3 cm in oblique axial dimensions. This suggest his primary is likely lung origin and would be M1a (stage ALVARADO) disease. Pathology has enough for significant cell block. This is being sent to [facility] for review. I have asked them to send it for PD-L1, EGFR, ALK, ROS1. Molecular markers will be useful to treatment plans. Patient is having PleuRx placed today. Recommendations: 1. PET/CT as outpatient 2. Pathology pending for review to confirm adenocarcinoma vs squamous and molecular testing 3. Follow up as outpatient, patient is considering [facility] ([facility] , can call [phone] for appointment) and Dr. Mtz (can call for appointment) Please call [phone] with any questions. Problem List: 1. Carcinoma 2. Pleural effusion 3. Dyspnea
--- NOTE | 2016-10-09 11:48 | RADIOLOGY REPORT ---
EXAMINATION: XR PORTABLE CHEST CLINICAL INFORMATION: Follow-up pneumothorax. COMPARISON: CXR from 10/05/2016 TECHNIQUE: Portable view of the chest was obtained. FINDINGS: Compared to 10/05/2016, the pneumothorax has resolved. The right costophrenic sulcus is slightly blunted, suggestive of trace residual pleural effusion. There is discoid atelectasis adjacent to the minor fissure. The pleural drainage catheter projects over the region of the right lateral costophrenic sulcus. Cardiomediastinal silhouette has stable size and configuration. There is no acute pulmonary edema or other significant interval change. IMPRESSION: The pleural drainage catheter remains positioned in the base of the right hemithorax. The pneumothorax has resolved.
[2016-10-09] MEDS ORDERED: OXYCODONE HCL5 M2 PO (11:56)
[2016-10-09 14:27] VITALS: BP 125/80
--- NOTE | 2016-10-09 17:03 | INTERVENTIONAL RADIOLOGY RPT ---
PROCEDURE: REMOVAL OF PIGTAIL PLEURAL DRAIN CLINICAL INFORMATION: 76-year-old male with recently placed right pleural catheter. Pleural effusion has decreased in size and pneumothorax has resolved. Request was made for removal of pigtail catheter. MEDICATIONS: None required for today's procedure. IMAGING: None required for today's procedure. PROCEDURE IN DETAIL: Informed consent was obtained from the patient prior to the procedure. During this process, the procedure and potential alternatives was explained, along with the intended outcome and benefits. The risks of the procedure, as well as the risk of not doing the procedure, were discussed. The patient was given the opportunity to ask questions regarding the procedure and appeared competent to make medical decisions. A signed consent form which documents this discussion was placed in the medical record. A final timeout was called. The right back and existing drainage catheter were prepped in a sterile fashion with maximal barrier protection. The retaining stitch was removed. The pigtail catheter was clamped, cut and removed in its entirety utilizing gentle pressure. Sterile Vaseline was used to create a wet seal at the catheter site. A sterile dressing was placed after hemostasis was achieved utilizing manual pressure. No complications. IMPRESSION: Successful removal of right-sided pleural drainage catheter.
== END 2016-10-09 15:00 | disposition home health service (06) | DRG 181 ==
LOC: ENRESERVDT → ENRESERVTM → ERH 14:48 → 2NA 18:36 → 2NB 18:36 → CRI 18:36 → ERHI 18:36 → 2NB 20:51 → CRI 10-03 13:12 → 2NA 10-05 15:42
PROVIDERS: Emergency Medicine; Internal Medicine Hematology & Oncology; Student in an Organized Health Care Education/Training Program; ADMIT Student in an Organized Health Care Education/Training Program
PROC: 0W9930Z Drainage of Right Pleural Cavity with Drainage Device, Percutaneous Approach (ICD-10-PCS; principal; 2016-10-03)
PROC: 0WP9X3Z Removal of Infusion Device from Right Pleural Cavity, External Approach (ICD-10-PCS; 2016-10-09)
DX: C34.91 Malignant neoplasm of unspecified part of right bronchus or lung (principal); J91.0 Malignant pleural effusion; J95.811 Postprocedural pneumothorax; C79.9 Secondary malignant neoplasm of unspecified site; E87.5 Hyperkalemia; Z87.891 Personal history of nicotine dependence; K42.9 Umbilical hernia without obstruction or gangrene
CPT/HCPCS: 2NAP; 2NBSP; 70552; 87075; CCU; 36415; 70553; 82436; 88305; 90662; 93005; 93010; A9579; J1644; J2405; J3490; J7040